=== PATIENT | male | born 1950 | race Caucasian/White ===

== ENCOUNTER → 2016-09-14 09:48 | Outpatient (CLI) | payer MEDICARE, OTHER ==
[2013-04-08 09:45] VITALS: BMI 29.3
[~2016-09-14 09:48] MED LIST: GEMFIBROZIL600 MG PO; LORTAB 7.5/5001 TA1 PO; NAPROSYN500 MG PO; NORCO 10/325 TA1 TA1 PO; PRILOSEC20 MG PO; ZEBETA5 MG PO
[2016-09-14 10:47] LABS: BASOPHILS 0.7 % (0-2); EOSINOPHILS 3.3 % (0-7); HEMATOCRIT 49.5 % (42.0-54.0); HEMOGLOBIN 16.9 g/dL (13.5-17.5); IMMATURE GRANULOCYTES 0.1 % (0-5); LYMPHOCYTES 25.6 % (15-50); MCHC 34.1 g/dL (31.0-37.0); MCV 96.7 fL (80.0-100.0); MEAN PLATELET VOLUME 11.1 fL (7.4-10.4); MONOCYTES 12.9 % (2-11); NEUTROPHILS 57.4 % (40-80); RBC 5.12 10x6/uL (4.20-6.10); RDW 12.3 % (11.5-14.5); WBC 7.3 10x3/uL (4.8-10.8)
[2016-09-14 10:48] LABS: PLATELET COUNT 182 10x3/uL (130-400)
[2016-09-14 10:54] LABS: APTT 28.9 SECONDS (22.8-39.4); INR 1.01 (0.85-1.17); PROTIME 13.1 SECONDS (11.6-15.0)
[2016-09-14 11:05] LABS: % SATURATION 38 % (15-55); IRON 154 ug/dl (35-150); TOTAL IRON BIND CAPACITY 403 ug/dl (260-445); UNSAT IRON BIND CAPACITY 249 ug/dl (150-375)
[2016-09-14 11:20] LABS: ALKALINE PHOSPHATASE 104 U/L (46-116); ALT (SGPT) 90 U/L (10-68); BILIRUBIN - DIRECT 0.27 mg/dL (0.00-0.30); BILIRUBIN - INDIRECT 0.83 mg/dL (0.00-1.00); CALC OSMOLALITY 276 mosm/kg (275-300); CALCIUM 9.5 mg/dL (8.5-10.1); CARBON DIOXIDE 30.2 mmol/L (21.0-32.0); CHLORIDE - SERUM 101 mmol/L (98-107); CHOL - HDL RATIO 3.2 ratio (2.3-4.9); CHOLESTEROL, TOTAL 285 mg/dL (0-200); FERRITIN 450 ng/mL (3-244); GAMMA GT 59 U/L (5-85); HDL CHOLESTEROL 90 mg/dL (32-96); LDL CHOLESTEROL 174 mg/dL (0-100); LDL-HDL RATIO 1.9 ratio (1.5-3.5); PROTEIN - SERUM 7.7 g/dL (6.4-8.2); SODIUM 138 mmol/L (136-145); TRIGLYCERIDE 109 mg/dL (30-200); UREA NITROGEN 9 mg/dL (7-18); eGFR NON AFRICAN AMERICAN 79 mL/min (90-120)
[2016-09-14 11:22] LABS: GLUCOSE 130 mg/dL (74-106)
[2016-09-15 08:21] LABS: FOLATE (FOLIC ACID) - SERUM 14.3 ng/mL (>3.0); HEPATITIS C ANTIBODY 0.1 (0.0-0.9)
[2016-09-15 10:20] LABS: ALPHA FETOPROTEIN -(TUMOR MRK) 13.2 ng/mL (0.0-8.3)
[2016-09-15 11:18] LABS: HAPTOGLOBIN 73 mg/dL (34-200)
== END | disposition home or self-care (01) ==
LOC: D.US 09:48
PROVIDERS: Internal Medicine Gastroenterology
DX: K76.0 Fatty (change of) liver, not elsewhere classified (principal)

== ENCOUNTER → 2016-09-29 09:31 | Outpatient (CLI) | payer MEDICARE, OTHER ==
[2013-04-08 09:45] VITALS: BMI 29.3
== END | disposition home or self-care (01) ==
LOC: D.CT 09:31
DX: R79.89 Other specified abnormal findings of blood chemistry (principal); K63.5 Polyp of colon

== ENCOUNTER 2016-11-03 06:48 | Inpatient (IN) | payer MEDICARE, OTHER ==
[2016-11-01 11:37] LABS: BASOPHILS 0.4 % (0-2); EOSINOPHILS 6.1 % (0-7); HEMATOCRIT 45.4 % (42.0-54.0); HEMOGLOBIN 15.4 g/dL (13.5-17.5); IMMATURE GRANULOCYTES 0.2 % (0-5); LYMPHOCYTES 38.6 % (15-50); MCH 32.2 pg (26.0-34.0); MCHC 33.9 g/dL (31.0-37.0); MONOCYTES 14.1 % (2-11); NEUTROPHILS 40.6 % (40-80); PLATELET COUNT 184 10x3/uL (130-400); RBC 4.78 10x6/uL (4.20-6.10); RDW 12.8 % (11.5-14.5); WBC 4.9 10x3/uL (4.8-10.8)
[2016-11-01 11:51] LABS: CALC OSMOLALITY 278 mosm/kg (275-300); CHLORIDE - SERUM 104 mmol/L (98-107); GLUCOSE 111 mg/dL (74-106); POTASSIUM - SERUM 4.7 mmol/L (3.5-5.1); SODIUM 141 mmol/L (136-145); UREA NITROGEN 5 mg/dL (7-18); eGFR NON AFRICAN AMERICAN 79 mL/min (90-120)
[~2016-11-03] VITALS: Ht 175.3 cm; Wt 91.7 kg
[2016-11-03] VITALS (11 sets, daily range): BP systolic 105–194; BP diastolic 64–94; BMI 28.7
[~2016-11-03 06:48] MED LIST changes: +BETAPACE 80 MG80 MG PO; +LIPITOR10 MG PO; +OMEPRAZOLE40 MG PO
--- NOTE | 2016-11-03 19:45 | NUR ---
RECEIVED PATIENT FROM RECOVERY. PATIENT RESTING IN BED AND HAS NO COMPLAINT OF PAIN. VITALS WNL. BED IN LOWEST POSITION AND CALL LIGHT WITHIN REACH. ENCOURAGED THE PATIENT TO CALL IF HE HAS NEEDS.
[2016-11-04] VITALS (7 sets, daily range): BP systolic 91–136; BP diastolic 47–79; Ht 175.3 cm; Wt 91.7 kg
--- NOTE | 2016-11-04 00:55 | NUR ---
PAGED DR. RESENDIZ PER PATIENT REQUEST. PATIENT IS UPSET THAT HIS HOME MEDS WERE NOT REVIEWED OR REORDERED. I ASSURED THE PATIENT THAT DR. RESENDIZ HAD REVIEWED HIS HOME MED LIST.
[2016-11-04 07:15] LABS: BASOPHILS 0.2 % (0-2); EOSINOPHILS 0.4 % (0-7); HEMATOCRIT 36.3 % (42.0-54.0); HEMOGLOBIN 11.9 g/dL (13.5-17.5); IMMATURE GRANULOCYTES 0.4 % (0-5); LYMPHOCYTES 11.9 % (15-50); MCH 31.7 pg (26.0-34.0); MCHC 32.8 g/dL (31.0-37.0); MCV 96.8 fL (80.0-100.0); MEAN PLATELET VOLUME 11.2 fL (7.4-10.4); MONOCYTES 11.2 % (2-11); NEUTROPHILS 75.9 % (40-80); PLATELET COUNT 206 10x3/uL (130-400); RBC 3.75 10x6/uL (4.20-6.10); RDW 13.1 % (11.5-14.5); WBC 13.5 10x3/uL (4.8-10.8)
[2016-11-04 07:36] LABS: ANION GAP 18.3 mmol/L (8-16); CALCIUM 7.9 mg/dL (8.5-10.1); CARBON DIOXIDE 22.3 mmol/L (21.0-32.0); CREATININE - SERUM 1.6 mg/dL (0.6-1.3)
[2016-11-04 07:39] LABS: POTASSIUM - SERUM 4.6 mmol/L (3.5-5.1)
--- NOTE | 2016-11-04 08:09 | NUR ---
PT SEEN THIS AM. NO COMPLAINTS OF PAIN OR NAUSEA AT PRESENT. MIDLINE DRESSING CLEAN DRY AND INTACT. LAP SITES X 2 NOTED. CALL LIGHT IN REACH. BOWEL SOUNDS NOTED.
--- NOTE | 2016-11-04 12:17 | NUR ---
Patient Name: EMELINA MENDEZ Admission Status: Elective Accout number: [id number] Admission Date: 11-03-2016 : 1950 Admission Diagnosis:BENIGN NEOPLASM OF SIGMOID COLON Attending: RADHA Current LOS: 1 Anticipated DC Date: 11-06-2016 Planned Disposition: Home Primary Insurance: MEDICARE A & B Discharge Planning Comments: CM MET WITH PATIENT REGARDING D/C NEEDS AND PLANS. PATIENT STATED HE LIVES ALONE BUT HIS GIRLFRIEND (TRE) WILL DRIVE HIM HOME AND WILL BE STAYING WITH HIM AT DISCHARGE. PATIENT STATED THERE ARE 15 STEPS W/RAILS TO ENTER HOME AND NO STAIRS INSIDE. PATIENT IS INDEPENDENT WITH HIS CARE AND HAS NO DME AT HOME. PATIENTS PCP IS DR. GARSIA AND PHARMACY IS [facility]. PATIENT DOES NOT WANT HOME HEALTH. CM WILL CONTINUE TO FOLLOW PATIENT WITH D/C NEEDS AND PLANS. PCP DR. SUN RENDON [facility]- [phone] TRE (GIRLFRIEND) [phone] Mailroom Courier: Brooke Salazar Is the patient Alert and Oriented? Yes 0 * How many steps to enter\exit or inside your home? 15 W/RAILS 0 * PCP DR. GARSIA 0 * Pharmacy [facility] 0 * Preadmission Environment Home Alone 0 * ADLs Independent 0 * Equipment None 0 * List name and contact numbers for known caregivers / representatives who currently or will assist patient after discharge: TRE (GIRLFRIEND) [phone] 0 * Community resources currently utilized None 0 * Additional services required to return to the preadmission environment? Yes 0 * Can the patient safely return to the preadmission environment? Yes 0 * Has this patient been hospitalized within the prior 30 days at any hospital? No 0 Grand Total: 0
--- NOTE | 2016-11-04 14:55 | NUR ---
PT HAS MINIMAL OUTPUT PER MCCARTHY. DOES NOT FEEL THE URGE TO PEE OR FEEL DISTENDED. VS 105/57 P 66 R 16 97.4 SAT 98%. BLADDER SCANNED WITH MAX AMOUNT SHOWN [address] RESENDIZ PAGED.
--- NOTE | 2016-11-04 15:21 | NUR ---
DR RESENDIZ RETUREND CALL. 500CC BOLUS OF NS RUNNING.
--- NOTE | 2016-11-04 16:43 | NUR ---
DR RESENDIZ CALLED REGARDING LOW OUTPUT OF 100CC URINE. 2ND NS BOLUS OF 500CC GIVEN. IN TALKING WITH PATIENT, HE STATES THAT WHILE HE WAS DOING THE BOWEL PREP, HE ONLY DRANK 1 BOTTLE OF GATORADE AND LOST ABOUT 6 PUNDS. WILL RELAY THIS INFORMATION TO DOCTOR ALONG WITH LAB RESULTS.
[2016-11-04 17:10] LABS: BASOPHILS 0.2 % (0-2); EOSINOPHILS 1.7 % (0-7); HEMATOCRIT 32.2 % (42.0-54.0); HEMOGLOBIN 10.5 g/dL (13.5-17.5); IMMATURE GRANULOCYTES 0.2 % (0-5); LYMPHOCYTES 18.4 % (15-50); MCH 32.1 pg (26.0-34.0); MCHC 32.6 g/dL (31.0-37.0); MCV 98.5 fL (80.0-100.0); MEAN PLATELET VOLUME 10.8 fL (7.4-10.4); MONOCYTES 13.9 % (2-11); NEUTROPHILS 65.6 % (40-80); RBC 3.27 10x6/uL (4.20-6.10); RDW 13.2 % (11.5-14.5); WBC 12.1 10x3/uL (4.8-10.8)
[2016-11-04 17:15] LABS: PLATELET COUNT 157 10x3/uL (130-400)
[2016-11-04 17:21] LABS: ANION GAP 16.1 mmol/L (8-16); CALCIUM 7.5 mg/dL (8.5-10.1); CARBON DIOXIDE 25.7 mmol/L (21.0-32.0); CREATININE - SERUM 2.4 mg/dL (0.6-1.3); POTASSIUM - SERUM 4.8 mmol/L (3.5-5.1)
--- NOTE | 2016-11-04 19:19 | NUR ---
PT SECOND BOLUS FINISHED AND URINE OUTPUT NOW 100 CC. LAB DONE AND CALLED TO DR RESENDIZ WITH NO NEW ORDERS RECIEVED. WILL CONTINUE TO MONITOR URINE OUTPUT
--- NOTE | 2016-11-04 21:30 | NUR ---
AMBULATED WITH PATIENT 5 LAPS AROUND NURSE STATION (1000 FEET). PATIENT AMBULATED WITH MINIMAL ASSIST, ONLY HOLDING MY HAND, I CARRIED MCCARTHY CATHETER AND PUSHED THE IV POLE. PATIENT DID NOT APPEAR TO BE IN ANY DISTRESS WHILE HE WAS WALKING. RESPIRATIONS UNLABORED ON ROOM AIR. PATIENT BACK TO BED. CALL LIGTH IN REACH. PATIENT DENIES NEEDS. PATIENT STATED HIS PAIN IS CONTROLED AND HE IS SELDOMLY USING THE SHIP MANAGER. SCDS TO BILATERAL LEGS. BED IN LOWEST POSITON, BED RAILS UP X'S 2.
[2016-11-05] VITALS: BP 110/62
--- NOTE | 2016-11-05 03:55 | NUR ---
PATIENT STATED HE IS HURTING REALLY BAD, PATIENT ASKED IF HE COULD SIT ON THE TOILET. ASSISTED PATIENT WITH IV POLE AND MCCARTHY HE WALKED TO THE BATHROOM. PATIENT CALLED ME IN THE ROOM, AND HE STATED HE FEELS LIKE HE NEEDS TO URINATE BUT IS UNABLE TO WITH THE CATHETER. SHOWED PATIENT THE URINE IN THE MCCARTHY TUBING AND COLLECTION BAG, PATIENT STATED "I KNOW BUT THAT IS NOT ALL OF IT. IF YOU TAKE THIS CATHETER OUT I COULD PROBABLY URINATE 2 GALLONS." .
[2016-11-05 04:00] VITALS: BP 139/78
--- NOTE | 2016-11-05 04:00 | NUR ---
BLADDER SCANNER SHOWS 0ML, SHOWED IT TO PATIENT. EXPLAINED TO PATIENT THAT HE IS PROBABLY FEELING THE PRESSURE FROM HIS ABDOMEN AND HE PROBABLY NEEDS TO WALK. PATIENT AGREED. PATIENT AMBULATED 2 LAPS AROUND NURSE STATION. PATIENT BACK IN BED. HOB 35 DEGREES. BED IN LOWEST POSITION, CALL LIGHT IN REACH. BED RAILS UP X'S 2.
[2016-11-05 07:09] LABS: BASOPHILS 0.2 % (0-2); EOSINOPHILS 1.1 % (0-7); HEMATOCRIT 30.1 % (42.0-54.0); HEMOGLOBIN 9.9 g/dL (13.5-17.5); IMMATURE GRANULOCYTES 0.2 % (0-5); LYMPHOCYTES 13.3 % (15-50); MCH 31.7 pg (26.0-34.0); MCHC 32.9 g/dL (31.0-37.0); MEAN PLATELET VOLUME 10.9 fL (7.4-10.4); MONOCYTES 10.1 % (2-11); NEUTROPHILS 75.1 % (40-80); PLATELET COUNT 143 10x3/uL (130-400); RBC 3.12 10x6/uL (4.20-6.10); RDW 13.1 % (11.5-14.5)
[2016-11-05 07:10] LABS: MCV 96.5 fL (80.0-100.0); WBC 6.2 10x3/uL (4.8-10.8)
[2016-11-05 07:25] LABS: ANION GAP 13.1 mmol/L (8-16); CALCIUM 7.7 mg/dL (8.5-10.1); CARBON DIOXIDE 25.2 mmol/L (21.0-32.0); POTASSIUM - SERUM 4.3 mmol/L (3.5-5.1)
[2016-11-05 07:26] LABS: CREATININE - SERUM 1.6 mg/dL (0.6-1.3)
--- NOTE | 2016-11-05 08:15 | NUR ---
PT RESTING IN BED WITH EYES OPEN CALL LIGHT IN REACH NO PROBLEMS WILL MONITER
[2016-11-05 08:42] VITALS: BP 96/52
--- NOTE | 2016-11-05 12:15 | NUR ---
AWAKE AND ALERT AT THIS TIME. RESPIRATIONS EVEN AND NON LABORED. CALL LIGHT IN REACH, WILL CONTINUE WITH PLAN OF CARE.
[2016-11-05 12:19] VITALS: BP 114/55
--- NOTE | 2016-11-05 14:30 | NUR ---
DCD MCCARTHY CATH PER ORDER TIP PAUL IN TACT TOLERATED WELL
--- NOTE | 2016-11-05 15:36 | NUR ---
PT RESTING IN BED WITH EYES OPEN CALL LIGHT IN REACH NO PROBLEMS WILL MONITER
[2016-11-05 16:26] VITALS: BP 109/59
--- NOTE | 2016-11-05 17:34 | NUR ---
PT RESTING IN BED WITH EYES OPEN CALL LIGHT IN REACH WILL MONITER
--- NOTE | 2016-11-05 19:30 | NUR ---
PATIENT RESTING IN BED WITH EYES CLOSED. BED IN LOWEST POSITION AND CALL LIGHT WITHIN REACH.
[2016-11-05 20:00] VITALS: BP 116/61
[2016-11-06] VITALS (8 sets, daily range): BP systolic 87–158; BP diastolic 54–75
--- NOTE | 2016-11-06 02:44 | NUR ---
SPOKE WITH DR. NAJERA IN REGARDS TO THE PATIENT'S ELEVATED HR. ORDERED A ONE TIME 500ML BOLUS
--- NOTE | 2016-11-06 03:48 | NUR ---
SPOKE WITH DR. NAJERA WHO SAID TO ADMINISTER PT'S LOPRESSOR FOR ELEVATED HR 162
--- NOTE | 2016-11-06 05:04 | NUR ---
PAGED DR. RESENDIZ ABOUT PATIENT'S ELEVATED HR
--- NOTE | 2016-11-06 07:00 | NUR ---
PT REC'D FROM TORI BRADLEY. RESTING IN BED WITH EYES CLOSED. NO SIGNS OF DISTRESS. RESP EVEN AND UNLABORED. EASILY AROUSED. AAOX4. RATING CURRENT PAIN IN ABD 09/24. WILL REASSESS. CURRENT HEART RATE 159, BP 123/85, 95% ON RA. NO COMPLAINTS OF CHEST PAIN. ABD ROUND, BOWEL SOUNDS ACTIVE X4 QUADRANTS, FIRM TO PALPATION WITH PAIN AND GUARDING WHEN PALPATING LLQ. MIDLINE ABD INCISION APPROXIMATE WITH 6 NEO FREE OF REDNESS AND SWELLING. LAP SITE TO RUQ WITH 1 STAPLE APPROXIMATE AND FREE OF REDNESS AND SWELLING. WILL PAGE DR. RESENDIZ REGARDING HR. BED LOW, CALL LIGHT IN REACH, DENIES NEEDS. CPOC.
--- NOTE | 2016-11-06 07:45 | NUR ---
DR. MARTÍN CARRIZALES.
--- NOTE | 2016-11-06 07:50 | NUR ---
DR. RESENDIZ ON PHONE. UPDATE PROVIDED AND NEW ORDERS REC'D.
--- NOTE | 2016-11-06 08:15 | NUR ---
LUIS FELIPE, WAITER/WAITRESS INFORMAL TECH, ON PHONE. STATES, "HIS MEDICATION MUST BE WORKING. HE'S DOWN TO 95 SINUS RHYTHM." WILL CONTINUE TO MONITOR.
[2016-11-06 08:48] LABS: CKMB 0.7 U/L (0.0-3.6); CREATINE KINASE 202 UL (21-232); PRO BNP 3014 pg/mL (0-125); TROPONIN-I < 0.017 ng/mL (0.000-0.060)
--- NOTE | 2016-11-06 10:10 | NUR ---
MORNING MEDS PASSED AT THIS TIME. DR. RESENDIZ AT BEDSIDE DISCUSSING POC. NEOSPORIN APPLIED TO INCISION SITES. CURRENT HR 159 ON CONT SPO2 MONITOR. PRN PAIN MEDICATION AND ANTIEMETIC ADMINISTERED. WILL REASSESS PAIN. BED LOW, CALL LIGHT IN REACH, WILL CONTINUE TO MONITOR.
--- NOTE | 2016-11-06 10:28 | NUR ---
PT IN BED, RESP EVEN AND UNLABORED. PT DENIES ANY NEEDS AT THIS TIME. CALL LIGHT IN REACH, NAD NOTED.
--- NOTE | 2016-11-06 12:48 | NUR ---
RESTING IN BED WATCHING TV. NO SIGNS OF DISTRESS. RESP EVEN AND UNLABORED. CURRENT HR 85 SINUS RHYTHM PER TORI NOWAK, AT BUSINESS INTEGRATION ANALYST.
--- NOTE | 2016-11-06 15:00 | NUR ---
PRN PAIN MEDICATION ADMINISTERED DUE TO PT COMPLAINTS OF 9/10 ABD PAIN. WILL REASSESS. ANTIEMETIC ALSO ADMINISTERED DUE PAIN MEDICATION MAKING PT FEEL NAUSEOUS. REPOSITIONED UP IN BED. O2 REAPPLIED. BED LOW, CALL LIGHT IN REACH, DENIES NEEDS. CPOC.
--- NOTE | 2016-11-06 15:51 | NUR ---
PT HAD TAKEN O2 TUBING OFF. O2 ALARM SOUNDING READING 82% ON ROOM AIR. SHOWED PT HIS O2 SAT AND EXPLAINED TO HIM THIS IS WHY HE NEEDS TO KEEP HIS OXYGEN ON. NC REAPPLIED AND O2 AT 3L. SPO2 BACK UP TO 93%. CURRENT HR OF 83 ON SPO2 MONITOR.
--- NOTE | 2016-11-06 18:50 | NUR ---
DR. RESENDIZ PAGED REGARDING SOB AND MCCAULEY ON EXCERTION. NEW ORDERS REC'D.
--- NOTE | 2016-11-06 20:24 | NUR ---
SPOKE WITH DR. BYRD WHO SAID TO ADMINISTER PATIENT'S ZEBETA AND BETAPACE. I INFORMED DR. BYRD THAT THE PATIENT'S HR ON TELE IS 156 SVT AND HIS BNP CAME BACK 3014. DR. BYRD HAD NO FURTHER ORDERS.
--- NOTE | 2016-11-06 20:24 | NUR ---
PATIENT'S HR 156 SVT
--- NOTE | 2016-11-06 23:57 | NUR ---
PAGED DR. RESENDIZ
[2016-11-07] VITALS (38 sets, daily range): BP systolic 80–147; BP diastolic 44–94
--- NOTE | 2016-11-07 00:15 | NUR ---
SPOKE WITH EMA, DOWN FILLER IN REGARDS TO PT. SHE ADVISED ME TO CONTACT DR. RESENDIZ AND SHE AND I BOTH SPOKE WITH DR. RESENDIZ. INFORMED DR. RESENDIZ ABOUT PT'S INCREASINGLY DISTENDED ABDOMEN, ELEVATED HR, RHONCHI AND CRACKLES IN HIS LUNGS, AND DECREASED URINE OUTPUT. DR. RESENDIZ TRANS THE PT TO CVICU AND ORDERED ADDITIONAL TESTS.
[2016-11-07 01:04] LABS: BASOPHILS 0.3 % (0-2); EOSINOPHILS 0.4 % (0-7); HEMOGLOBIN 10.8 g/dL (13.5-17.5); IMMATURE GRANULOCYTES 0.5 % (0-5); LYMPHOCYTES 17.7 % (15-50); MCHC 33.8 g/dL (31.0-37.0); MCV 94.7 fL (80.0-100.0); MONOCYTES 17.4 % (2-11); NEUTROPHILS 63.7 % (40-80); RBC 3.38 10x6/uL (4.20-6.10); RDW 12.9 % (11.5-14.5)
[2016-11-07 01:05] LABS: PLATELET COUNT 219 10x3/uL (130-400); WBC 7.9 10x3/uL (4.8-10.8)
[2016-11-07 01:19] LABS: ALBUMIN 2.3 g/dL (3.4-5.0); ANION GAP 16.7 mmol/L (8-16); BILIRUBIN - TOTAL 0.8 mg/dL (0.2-1.3); CALCIUM 8.3 mg/dL (8.5-10.1); CARBON DIOXIDE 24.2 mmol/L (21.0-32.0); CREATININE - SERUM 1.6 mg/dL (0.6-1.3); POTASSIUM - SERUM 3.9 mmol/L (3.5-5.1); PROTEIN - SERUM 6.2 g/dL (6.4-8.2)
--- NOTE | 2016-11-07 01:40 | NUR ---
DR RESENDIZ CALLED IN FOR UPDATE ON PT. DISCUSSED LABS AND VITAL SIGN AND PT CONDITION. NO NEW ORDERS AT THIS TIME.
--- NOTE | 2016-11-07 01:45 | NUR ---
PT RECVD VIA W/C TO ROOM CV03. AMBULATED TO ICU BED AND PLACED ON MONITORS. AOX4. RESP SHALLOW, UNLABORED. SPO2 98% ON O2 AT 4.5 LPM NC. HR 87, CONTROLLED A FIB. PULSES PALP, LUNG SOUNDS WITH SCANT EXP WHEEZES. OCC PROD COUGH, REPORTS WHITISH PINK SPUTUM. ABD DISTENDED WITH HYPO BS. PASSING FLATUS AND REPORTS RECENT BM. BLADDER NON PALP. VOIDING TO URINAL. PAIN LEVEL ACCEPTABLE POST DILAUDID. HOB UP. ORIENTED TO CALL LIGHT. BED ALARM ON. CONT CURRENT POC.
--- NOTE | 2016-11-07 03:45 | NUR ---
REASSESSMENT COMPLETED. SEE FLOWSHEET FOR ALL FINDINGS. RESTING WITH NO DISTRESS. RESP EVEN AND UNLABORED. SCANT EXP WHEEZES PER AUSC. SPO2 97% ON O2 AT 4 LPM NC. CAFIB ON THE MONITOR. HR 78. SYS 105 AFEBRILE. ABD DISTENDED. BS HYPO. INCISIONAL DRESSING CDI. PASSING FLATUS. BLADDER NON PALP. DENIES URGE. HOB UP. C/L IN REACH. CONT CURRENT POC.
--- NOTE | 2016-11-07 05:25 | NUR ---
RESTING WITH NO DISTRESS. CAFIB AT 78. SYS 95 NO NEEDS VOICED. C/L IN REACH. CONT CURRENT POC.
--- NOTE | 2016-11-07 09:32 | NUR ---
PT UP TO RESTROOM. HAD SMALL LIQUID BM IN TOILET AND VOIDED WITHOUT DIFFICULTY. ASSISTED BACK TO BED. ABDOMEN VERY DISTENDED AND PT REPORTS "I FEEL LIKE I'M FULL UP TO MY TONSILS". DENIES NAUSEA, BUT IS BURPING FREQUENTLY. VSS. O2 SAT 96% ON 3LNC. DR. [place]IZ [place].
--- NOTE | 2016-11-07 10:02 | NUR ---
PT TAKEN TO CT BY BED.
--- NOTE | 2016-11-07 10:30 | NUR ---
PT BACK FROM CT BY BED. VOMITED DARK GREEN EMESIS. APPROX 300CC. PT CLEANED AND LINENS CHANGED. 16F NGT PLACED TO RIGHT NARE. IMMEDIATELY EMPTIED 600CC OF DARK GREEN FLUID IN SUCTION CANNISTER. PT REPORTS THAT HE FEELS MUCH BETTER. ABDOMEN IS SOFTER, BUT STILL DISTENDED. DR. RESENDIZ NOTIFIED AND ORDERS RECEIVED.
--- NOTE | 2016-11-07 11:13 | NUR ---
CALLED DR. RESENDIZ AND UPDATED ON PT'S STATUS. ORDERS RECEIVED.
--- NOTE | 2016-11-07 11:45 | NUR ---
AMIODARONE BOLUS GIVEN. AMIODARONE GTT STARTED AT 1MG/HR. HR 161. A-FIB. BP STABLE AT 120/75. NO S/S OF DISTRESS NOTED.
--- NOTE | 2016-11-07 12:25 | NUR ---
PT CONVERTED INTO SINUS RHYTHM RATE 84. BP STABLE.
--- NOTE | 2016-11-07 13:41 | NUR ---
Nutrition follow-up: Pt has been made NPO at this time due to a possible anastomotic leaks NGT in place Abdomen distended; + BS, +BM Will need nutrition support started within 48-72 hours if diet unable to begin. RDN following.
--- NOTE | 2016-11-07 14:45 | NUR ---
PT'S SON CALLED. GIVEN PASSWORD. UPDATED HIM ON PT'S STATUS.
--- NOTE | 2016-11-07 15:54 | NUR ---
PT REPOSITIONED IN BED FOR COMFORT. CALL LIGHT WITHIN REACH.
--- NOTE | 2016-11-07 16:42 | NUR ---
DR BYRD CALLED AND UPDATED ON PT'S STATUS. NOTIFIED OF PT'S CONVERSION TO SINUS RHYTHM. CONCERN THAT PT'S HR WILL GET TOO SLOW WITH IV LOPRESSOR AND BP ALSO. ORDERS RECEIVED TO D/C SCHEDULED IV LOPRESSOR.
--- NOTE | 2016-11-07 19:30 | NUR ---
REC'D PT RESTING IN BED EYES CLOSED, O2 @ 3LITERS VIA NC, AWAKENS TO VERBAL STIMULI, ORIENTED X 4, RIGHT NARE NGT TO LIWS WITH GREEN DRAINAGE, PLACEMENT VERIFIED VIA SM AIR BOLUS AUSCULTATED OVER EPIGASTRIM, ABD DISTENDED, BS HYPOACTIVE, PT DOES REPORT TENDERNESS TO LOWER QUADRANTS, LAP INCISION NOTED WITH NEO TO RLQ, RIGHT FOREARM PIV WITH NS @ 75CC/HR AND NEXTERONE @ 16.7CC/HR, CM-SR WITH PAC'S, PT DENIES PAIN OR NEEDS, BILAT SCD'S APPLIED AND MACHINE TURNED ON, PP WEAK TO PALPATION, SR UP X 2, CALL LIGHT IN REACH.
--- NOTE | 2016-11-07 21:00 | NUR ---
TRIPLE ANTIBIOTIC OINTMENT APPLIED TO RIGHT LOWER AND MIDLINE ABDOMEN INCISION SITES, NEO WELL APPROXIMATED, NO REDNESS FOR DRAINAGE.
--- NOTE | 2016-11-07 21:12 | NUR ---
PT COMPLAINS OF ABDOMINAL PAIN , RATING " 4" ON 0-10 PAIN SCALE, 1MG DILAUDID GIVEN SLOW IVP IN DIVIDED DOSES.
--- NOTE | 2016-11-07 21:45 | NUR ---
PT RESTING EYES CLOSED, RESP EVEN AND UNLABORED, BP DECREASED RETURNS TO BASELINE AFTER PT INTERACTION, WILL MONITOR CLOSELY FOR CHANGES.
--- NOTE | 2016-11-07 23:10 | NUR ---
REASSESSMENT COMPLETE, PT REPOSITIONED UP AND ONTO RIGHT SIDE SUPPORTED WITH PILLOWS, ICE CHIPS PROVIDED, PT DENIES FURTHER NEEDS.
[2016-11-08] VITALS (24 sets, daily range): BP systolic 84–137; BP diastolic 51–82
--- NOTE | 2016-11-08 01:00 | NUR ---
NO CHANGES IN STATUS AT THIS TIME
--- NOTE | 2016-11-08 02:20 | NUR ---
PT AWAKE WATCHING TV WHEN ASKED ABOUT PAIN, STATES " I AM HURTING BAD", ABDOMEN REMAINS DISTENDED AND SEMISOFT, 1MG DILAUDID GIVEN SLOW IV PUSH FOR PAIN RATING "6-8" ON 0-10 PAIN SCALE, PT REPOSITIONED ONTO BACK AND UP IN BED FOR COMFORT, WILL MONITOR FOR CHANGES.
--- NOTE | 2016-11-08 03:15 | NUR ---
DR. HARMON PAGED REGARDING AF @ 158
--- NOTE | 2016-11-08 03:25 | NUR ---
SPOKE WITH DR. HARMON, NEW ORDERS REC'D TO REBOLUS AND TURN GTT BACK TO 1MG/MIN
--- NOTE | 2016-11-08 03:30 | NUR ---
AMIODARONE BOLUS OF 150MG BEGUN AT THIS TIME, PT RESTING EYES CLOSED, AWAKENS BRIEFLY WHILE AT BS WHEN ASKED IF PAIN HAD SUBSIDED, STATES "PRETTY MUCH", WILL MONITOR CLOSELY FOR CHANGES.
--- NOTE | 2016-11-08 04:00 | NUR ---
RATE HAS SLOWED TO 86 WITH FREQUENT PAC'S, BP 113/59, WILL CONT TO MONITOR FOR CHANGES.
--- NOTE | 2016-11-08 05:00 | NUR ---
LAB AT FOR AM LAB DRAW
[2016-11-08 05:34] LABS: BASOPHILS 0.2 % (0-2); EOSINOPHILS 0.2 % (0-7); HEMATOCRIT 32.4 % (42.0-54.0); HEMOGLOBIN 11.1 g/dL (13.5-17.5); IMMATURE GRANULOCYTES 0.8 % (0-5); LYMPHOCYTES 13.2 % (15-50); MCH 31.7 pg (26.0-34.0); MCHC 34.3 g/dL (31.0-37.0); MONOCYTES 17.2 % (2-11); NEUTROPHILS 68.4 % (40-80); RDW 13.2 % (11.5-14.5); WBC 8.5 10x3/uL (4.8-10.8)
[2016-11-08 05:40] LABS: MCV 92.6 fL (80.0-100.0); PLATELET COUNT 275 10x3/uL (130-400)
[2016-11-08 05:52] LABS: ANION GAP 14.9 mmol/L (8-16); CALCIUM 7.9 mg/dL (8.5-10.1); CARBON DIOXIDE 23.1 mmol/L (21.0-32.0); MAGNESIUM - SERUM 1.3 mg/dL (1.8-2.4); PHOSPHOROUS 3.3 mg/dL (2.5-4.9)
[2016-11-08 05:54] LABS: CREATININE - SERUM 2.7 mg/dL (0.6-1.3)
--- NOTE | 2016-11-08 06:40 | NUR ---
PT WANTING NGT OUT EXPALINED TO PT THE NGT MUST REMAIN IN OR HIS SYMPTOMS WOULD WORSEN THE DAY BEFORE, PT STATES " I AM DEHYDRATED", EXPLAINED TO PT THAT HE HAD IVF'S INFUSING, ICE CHIPS AND ORAL SWABS PROVIDED, PT DISLIKE THE ORAL SWABS, LEMON GLYVERIN SWABS PROVIDED, OFFERED PAIN MEDICATION AT THIS TIME, REFUSES, STATES " I JUST WANT SOME RELIEF".
--- NOTE | 2016-11-08 06:50 | NUR ---
PT USING LEMON GLYCERIN SWABS WITH ICE CHIPS, STATES MOUTH DRYNESS IS " A LITTLE BETTER", PT REPORTS INTERMITTENT NAUSEA, 4MG ZOFRAN GIVEN SLOW IVP, WILL CONT TO MONITOR FOR CHANGES.
--- NOTE | 2016-11-08 07:45 | NUR ---
16 FR MCCARTHY CATH PLACED PER MD ORDERS. PT DID NOT VOID THROUGH THE NIGHT. URINARY RETENTION NOTED. 75CC OF MYRNA URINE NOTED WHEN MCCARTHY PLACED.
--- NOTE | 2016-11-08 08:26 | NUR ---
RESP THERAPY AT BEDSIDE FOR ABG. PT INCREASED LETHARGY. INC ABD DISTENTION.
--- NOTE | 2016-11-08 09:05 | NUR ---
DR. RESENDIZ AT BEDSIDE. UPDATED ON PT'S STATUS. DR OSORIO CALLED PT'S SON PRITESH AND UPDATED HIM ON PT'S STATUS AND PLAN OF CARE.
--- NOTE | 2016-11-08 10:24 | NUR ---
20G PIV STARTED IN RIGHT FA. NS WITH CRUSHER FOREMAN SET UP TO THIS IV WITH MAG INFUSION.
--- NOTE | 2016-11-08 10:39 | NUR ---
PT GIVEN .4MG DILAUDID BOLUS VIA CASING CREW PUMP. PRIOR TO TURNING PT AND GIVING HIM HIS CHLORAHEXADINE BATH PRIOR TO SURGERY.
--- NOTE | 2016-11-08 12:20 | NUR ---
PT RESTING COMFORTABLY AT THIS TIME. VSS AT THIS TIME.
--- NOTE | 2016-11-08 15:00 | NUR ---
PT TAKEN TO OR BY OR TEAM. CALLED AND NOTIFIED PT'S SON.
--- NOTE | 2016-11-08 16:15 | NUR ---
REPORT CALLED TO TORI GILL IN ICU. PT GOING TO ROOM 2312 WHEN FINISHED WITH SURGERY.
--- NOTE | 2016-11-08 18:47 | NUR ---
NOTIFIED DR AYALA REGARDING RESPIRATORY STATUS. DR AYALA ORDERED ABG'S STAT. DR. AYALA RECEIVED RESULTS FROM ABG'S. HE ORDERED 2 AMPS OF SODIUM BICARB. THIS WAS GIVEN BY VIJAYA GOMEZ RN.
--- NOTE | 2016-11-08 19:30 | NUR ---
PT ARRIVED WITH RECOVERY TEAM WITH THEIR MONITORS HOOKED UP FOR TRANSPORT. PT MOVED INTO OUR ICU BED AND PLACED ON ICU MONITORS. ASSESSMENT COMPLETED. PT VSS. PT ON SIMPLE FACE MASK ON 10L OF O2. PT ARRIVED WITH SINUS RHYTHM WITH PALP PULSES IN ALL EXTRMITIES. PT HAS A MIDLINE INCISION ON ABDOMEN, TORIN DRAIN ON THE LT LOWER ABDOMEN, AND AN OSTOMY ON THE LOWER RT SIDE OF HIS ABDOMEN. PT POSITIONED FOR COMFORT WILL CONTINUE TO MONITOR.
--- NOTE | 2016-11-08 19:30 | NUR ---
PT ARRIVED TO UNIT WITH RECOVERY TEAM. PT ARRIVED ON 10 L SIMPLE MASK WITH SATS MID 90'S. PT HAS A MIDLINE INCISION, TORIN DRAIN IN THE LT LOWER QD, AND A OSTOMY IN THE LLQ. PT HAS HYPO X4 BOWEL SOUNDS. CLEAR LUNG SOUNDS IN THE UPER LOBES AND DIMINISHED SOUNDS IN THE LOWER LOBES. NORMAL SINUS. PT POSITIONED FOR COMFORT WILL CONTINUE TO MONITOR.
--- NOTE | 2016-11-08 19:45 | NUR ---
TORIN DRAIN EMPTIED IN ICU AT HAND OFF WITH 50CC OUT.
--- NOTE | 2016-11-08 19:52 | NUR ---
DR AYALA ORDERED ABG'S TO BE REPEATED IN 30 MINUTES AFTER FIRST SET OF ABG'S. RT NOTIFIED. AMI FROM RESPIRATORY ADDIS GASES AND IS AWARE OF THE REPEAT ABG'S.
--- NOTE | 2016-11-08 19:54 | NUR ---
DR AYALA ORDERED THAT PATIENT STAY ON SIMPLE MASK AT 10L OF O2 AND BE DISCHARGED FROM RECOVERY TO ICU.
--- NOTE | 2016-11-08 21:00 | NUR ---
PT DAUGHTER AND RUSTAM IN LAW AT BEDSIDE UPDATE GIVEN. PT POSITIONED FOR COMFORT WILL CONTINUE TO MONITOR.
--- NOTE | 2016-11-08 23:00 | NUR ---
ASSESSMENT COMPLETED. NO ACUTE CHANGES. PT POSITIONED FOR COMFORT WILL CONTINUE TO MONITOR.
[2016-11-09] VITALS (24 sets, daily range): BP systolic 106–140; BP diastolic 61–93
--- NOTE | 2016-11-09 01:00 | NUR ---
PT ASLEEP IN BED PT DENIES ANY NEEDS. VSS. WILL CONTINUE TO MOMITOR.
--- NOTE | 2016-11-09 03:00 | NUR ---
REASSESSMENT COMPLETED. NO ACUTE CHANGES TO THE PT. WILL CONTINUE TO MONITOR PT.
[2016-11-09 04:31] LABS: BASOPHILS 0.2 % (0-2); EOSINOPHILS 0.1 % (0-7); HEMATOCRIT 31.4 % (42.0-54.0); HEMOGLOBIN 10.7 g/dL (13.5-17.5); IMMATURE GRANULOCYTES 1.8 % (0-5); LYMPHOCYTES 7.6 % (15-50); MCH 31.4 pg (26.0-34.0); MCHC 34.1 g/dL (31.0-37.0); MCV 92.1 fL (80.0-100.0); MEAN PLATELET VOLUME 10.9 fL (7.4-10.4); MONOCYTES 10.3 % (2-11); PLATELET COUNT 282 10x3/uL (130-400); RBC 3.41 10x6/uL (4.20-6.10); RDW 13.5 % (11.5-14.5); WBC 9.8 10x3/uL (4.8-10.8)
[2016-11-09 04:50] LABS: ANION GAP 17.4 mmol/L (8-16); CALCIUM 7.5 mg/dL (8.5-10.1); CARBON DIOXIDE 20.7 mmol/L (21.0-32.0); CREATININE - SERUM 3.2 mg/dL (0.6-1.3); PHOSPHOROUS 3.1 mg/dL (2.5-4.9); POTASSIUM - SERUM 4.1 mmol/L (3.5-5.1)
--- NOTE | 2016-11-09 05:10 | NUR ---
PT RESTING IN BED SWABBED HIS MOUTH DO TO THE O2 DRYING IT OUT. PT SEEMS TO BE SORE WITH A LITTLE PAIN FROM SURGERY TREATED WITH JET PILOT. WILL CONTIUE TO MONITOR.
--- NOTE | 2016-11-09 08:25 | NUR ---
SHIFT ASSESSMENT COMPLETED. PATIENT DENIES ANY NEEDS. EXPLAINED TO PATIENT HOW TO USE THE ADOLESCENT SPECIALIST BUTTON FOR HIS PAIN. CALL LIGHT WITHIN REACH.
--- NOTE | 2016-11-09 10:25 | NUR ---
NUTRITION MONITORING & EVAL CHART REVIEWED, PT NOW IN ICU. NPO SP SURGERY. WILL MONITOR PT PROGRESS. RD FOLLOWING
--- NOTE | 2016-11-09 11:22 | NUR ---
PHYSICAL THERAPY IN AND ASSISTED PATIENT UP INTO [facility]. PATIENT HR INCREASED WITH THE EXERTION TO 150'S WILL CONTINUE TO MONITOR HR. BP 111/83 AND PATIENT DENIES ANY DIZZINESS.
--- NOTE | 2016-11-09 16:31 | NUR ---
18F NGT PLACED VIA LEFT NARE. PLACEMENT CHECKED WITH AIR BOLUS WITH GURGLING AUSC OVER MID EPIGASTRIC REGION.
--- NOTE | 2016-11-09 19:15 | NUR ---
REPORT RECIEVED. ASSESSMENT COMPLETED. PT ALERT AND ORIENTATED. PT ABDOMEN IS DISTENDED WITH DRESSING OVER INCISION. DRESSING HAS A MINIMAL DRAINAGE ON THE DRESSING. TORIN DRAIN ON THE LT LOWER ABDOMEN IS COMPRESSED. PT IS USING THE DEMONSTRATOR ELECTRIC GAS APPLIANCES PUMP TO RELIEVE THE PAIN SEE DEMONSTRATOR ELECTRIC GAS APPLIANCES FLOW SHEET FOR DOSAGE. PT IS ON ICU TELEMETRY WITH A RHYTHM OF NORMAL SINUS. PULSES ARE PALP IN ALL EXTREMITIES. LUNG SOUNDS HAVE EXPIRATORY WHEEZES IN THE UPPER LOBES AND DIMINISHED SOUNDS IN THE BASES. PT IS POSITONED FOR COMFORT. WILL CONTINUE TO MONITOR.
--- NOTE | 2016-11-09 21:00 | NUR ---
NO VISITORS AT THIS TIME. PT POSITIONED FOR COMFORT WILL CONTINUE TO MONITOR.
--- NOTE | 2016-11-09 22:24 | NUR ---
PT SON CALLED UPDATE GIVEN.
--- NOTE | 2016-11-09 23:00 | NUR ---
REASSESSMENT COMPLETED. NO ACUTE CHANGES. PT POSITIONED FOR COMFORT WILL CONTINUE TO MONITOR.
[2016-11-10] VITALS (22 sets, daily range): BP systolic 123–189; BP diastolic 77–108
--- NOTE | 2016-11-10 01:10 | NUR ---
PT POSITIONED FOR COMFORT WILL CONTINUE TO MONITOR.
--- NOTE | 2016-11-10 03:00 | NUR ---
REASSESSMENT COMPLETE. PT SEEMED TO BE A LITTLE CONFUSED. HE SEEMED TO THINK HE COULD SEE THE WAVES FROM THE REMOTE WHEN HE PUSHED THE REMOTE BUTTON. THIS COULD BE A SIDE EFFECT FROM THE PAIN MEDS. NO OTHER ACUTE CHANGES WILL CONTINUE TO MONITOR.
[2016-11-10 04:07] LABS: BASOPHILS 0.2 % (0-2); EOSINOPHILS 0 % (0-7); HEMATOCRIT 26.9 % (42.0-54.0); HEMOGLOBIN 9.6 g/dL (13.5-17.5); IMMATURE GRANULOCYTES 5.9 % (0-5); LYMPHOCYTES 5.4 % (15-50); MCH 32.1 pg (26.0-34.0); MCHC 35.7 g/dL (31.0-37.0); MEAN PLATELET VOLUME 10.1 fL (7.4-10.4); MONOCYTES 7.6 % (2-11); NEUTROPHILS 80.9 % (40-80); PLATELET COUNT 326 10x3/uL (130-400); RBC 2.99 10x6/uL (4.20-6.10); RDW 13.7 % (11.5-14.5)
[2016-11-10 04:08] LABS: WBC 16.8 10x3/uL (4.8-10.8)
[2016-11-10 04:44] LABS: ANION GAP 14.8 mmol/L (8-16); CALCIUM 7.9 mg/dL (8.5-10.1); CARBON DIOXIDE 23.3 mmol/L (21.0-32.0); CREATININE - SERUM 3.1 mg/dL (0.6-1.3); MAGNESIUM - SERUM 2.3 mg/dL (1.8-2.4); PHOSPHOROUS 2.6 mg/dL (2.5-4.9)
[2016-11-10 04:45] LABS: POTASSIUM - SERUM 3.1 mmol/L (3.5-5.1)
--- NOTE | 2016-11-10 05:03 | NUR ---
PT ASLEEP IN BED APPEARS TO DENY ANY NEEDS. WILL CONTINUE TO MONITOR PT
--- NOTE | 2016-11-10 07:58 | NUR ---
PATIENT PULLED COLOSTOMY BAG OFF OF STOMA WITH FECES SPILLING OVER ABDOMEN, ARM, AND BED. CLEANED AND REPLACED COLOSTOMY BAG, INCISION DRESSING, TORIN DRESSING, BATH, AND LINEN CHANGE COMPLETED. ENCOURAGED PATIENT TO CALL NURSE IF SOMETHING WAS BOTHERING HIM INSTEAD OF PULLING ON EQUIPMENT. DR. RESENDIZ HERE IN TO SEE PATIENT. PATIENT IS ALERT AND ORIENTED.
--- NOTE | 2016-11-10 10:44 | NUR ---
PHYSICAL THERAPY IN ROOM WITH PATIENT TO TRANSFER TO CHAIR.
--- NOTE | 2016-11-10 10:55 | NUR ---
NGT PULLED OUT WHILE PATIENT WAS TRANSFERRING TO [facility] WITH PT. WILL REPLACE NGT.
--- NOTE | 2016-11-10 15:12 | NUR ---
PHYSICAL THERAPY HERE, PATIENT WALKED APPROXIMATELY 100FT. TOLERATED WALKING WELL. PATIENT BACK TO BED, AND DENIES ANY NEEDS.
--- NOTE | 2016-11-10 17:15 | NUR ---
PATIENT SLEEPING WITH NO DISTRESS NOTED AT THIS TIME. CALL LIGHT WITHIN REACH, BED IN LOW POSISTION.
--- NOTE | 2016-11-10 19:15 | NUR ---
REPORT RECIEVED. ASSESSMENT COMPLETED. PT ORIENTATED X4. PT IS ON TELEMETRY WITH A RATE OF 96 AND A RHYTHM OF A-FIB. PT LUNG SOUNDS ARE CLEAR IN THE UPPER LOBES AND DIMINISHED SOUNDS IN THE LOWER LOBES. PT HAS PALP PULSES IN ALL EXTREMITIES. PT ABDOMEN IS DISTENDED WITH DRESSING CDI, TORIN DRAIN IS COMPRESSED. PT HAS A CENTRAL LINE IN THE LT SUBCLAVIEN SEE IV FLOW SHEET FOR FLUIDS. WILL CONTINUE TO MONITOR PT.
--- NOTE | 2016-11-10 21:00 | NUR ---
NO VISITORS AT THIS TIME. PT POSITIONED FOR COMFORT WILL CONTINUE TO MONITOR.
--- NOTE | 2016-11-10 23:00 | NUR ---
REASSESSMENT COMPLETED. NO ACUTE CHANGES AT THIS TIME. PT POSITIONED FOR COMFORT WILL CONTINUE TO MONITOR.
[2016-11-11] VITALS (14 sets, daily range): BP systolic 134–186; BP diastolic 70–108
--- NOTE | 2016-11-11 01:00 | NUR ---
PT IS ASLEEP IN BED. WILL CONTINUE TO MONITOR.
--- NOTE | 2016-11-11 03:00 | NUR ---
REASSESSMENT COMPLETED. NO ACUTE CHANGES AT THIS TIME. POSITIONED PT FOR COMFORT WILL CONTINUE TO MONITOR.
[2016-11-11 04:10] LABS: BASOPHILS 0.6 % (0-2); EOSINOPHILS 0.1 % (0-7); HEMATOCRIT 27.4 % (42.0-54.0); HEMOGLOBIN 9.5 g/dL (13.5-17.5); LYMPHOCYTES 7.8 % (15-50); MCH 31.3 pg (26.0-34.0); MCHC 34.7 g/dL (31.0-37.0); MCV 90.1 fL (80.0-100.0); MEAN PLATELET VOLUME 9.8 fL (7.4-10.4); MONOCYTES 6.5 % (2-11); PLATELET COUNT 341 10x3/uL (130-400); RBC 3.04 10x6/uL (4.20-6.10); RDW 14.1 % (11.5-14.5); WBC 18.9 10x3/uL (4.8-10.8)
[2016-11-11 04:32] LABS: ANION GAP 12.9 mmol/L (8-16); CALCIUM 8.3 mg/dL (8.5-10.1); CARBON DIOXIDE 26.2 mmol/L (21.0-32.0); MAGNESIUM - SERUM 2.1 mg/dL (1.8-2.4); PHOSPHOROUS 3.2 mg/dL (2.5-4.9); POTASSIUM - SERUM 3.1 mmol/L (3.5-5.1)
[2016-11-11 04:35] LABS: CREATININE - SERUM 2.3 mg/dL (0.6-1.3)
--- NOTE | 2016-11-11 05:13 | NUR ---
PT ASLEEP IN BED. WILL CONTINUE TO MONITOR.
--- NOTE | 2016-11-11 07:00 | NUR ---
PT YELLING "OH, OH" AND TRYING TO MOVE IN THE BE. RIGHT AND LEFT RESTRAINTS IN PLACE. RESTRAINT TO RIGHT LEG. UNABLE TO STATE WHERE PAIN IS LOCATED. CONTINUES TO YELL. RIGHT UPPER ARM PICC INFUSING TPN AT 40ML/HR AND D5 20K+ AT 50ML/HR. VAPOTHERM AT 40 LPM. MCCARTHY SECURED TO RIGHT LEG. BED LOW POSITION. SEE ASSESSMENT FOR REST OF ASSESSMENT DATA.
--- NOTE | 2016-11-11 07:00 | NUR ---
SHIFT REPORT RECEIVED. PT AWAKE, ALERT AND ORIENTED. RESTING COMFORTABLY ON HIS BACK. ASKED TO HAVE SCD'S REMOVED. O2 AT 3L VIA NC. MCCARTHY SECURED TO RIGHT LEG. YELLOW CLEAR URINE NOTED. NG TUBE IN LEFT NARE CONNECTED TO LOW INTERMITENT SUCTION. [employer] IN USE 0.2MG EVERY 10 MINUTES WITH LOCKOUT OF 4MG/4HR. L-SUBCLAVIAN CVL. DRESSING INTACT AND ADHERED TO SKIN. TPN INFUSING AT 75ML/HR. AMIODERONE AT 0.5MG/MIN. NS KVO WITH ANTIBIOTICS INFUSING. BED LOW, CALL LIGHT IN REACH. WILL CONTINUE TO MONITOR PT.
--- NOTE | 2016-11-11 09:42 | NUR ---
NUTRITION MONITORING & EVAL PT REMAINS NPO, TPN AND LIPIDS PER MD. WILL CONTINUE TO MONITOR PT PROGRESS. RD FOLLOWING
--- NOTE | 2016-11-11 13:07 | NUR ---
DR. RESENDIZ SPOKE WITH PT ABOUT PYLOP REMOVAL. 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 HE ALSO TOLD HIM THAT NO CHEMOTHERY OR OTHER TREATMENT WOULD BE NEEDED.
--- NOTE | 2016-11-11 13:09 | NUR ---
GAVE LOPRESSOR PER ORDERS DUE TO BP INCREASING. WILL CONTINUE TO MONITOR BP. PT SITTING IN CHAIR COMFORTABLY. SIPPING ON ICE WATER. CALL LIGHT IN REACH.
--- NOTE | 2016-11-11 14:01 | NUR ---
PT TRANSFERRED BACK TO BED BY PT. PT HAD SOB. 02 SAT AT 92. 3L O2 NC STARTED BACK. PT BP IS HIGH. LAST BP WAS 186/105. WILL CONTINUE TO MONITOR BP.
--- NOTE | 2016-11-11 14:48 | NUR ---
GAVE TORODOL AND BENADRYL TO HELP PATIENT CALM DOWN. HE KEEPS YELLING "OH, Oh"
--- NOTE | 2016-11-11 14:51 | OP ---
PATIENT NAME: EMELINA MENDEZ MEDICAL RECORD: [id number] :46 LOCATION:.[facility] D.2312 ADMISSION DATE:11/03/16 SURGEON: CLARENCE RESENDIZ MD DATE OF OPERATION: 11/08/2016 PREOPERATIVE DIAGNOSES: 1. Anastomotic leak. 2. Sigmoid colon polyp status post BARI sigmoid colectomy. 3. Atrial fibrillation. POSTOPERATIVE DIAGNOSES: 1. Anastomotic leak. 2. Sigmoid colon polyp status post BARI sigmoid colectomy. 3. Atrial fibrillation. PROCEDURES: 1. Exploratory laparotomy with abdominal washout. 2. Diverting loop ileostomy. SURGEON: Clarence Resendiz MD REPORT OF PROCEDURE: The patient's abdomen was prepped and draped in sterile fashion. A Veress needle was inserted in the left upper quadrant and the abdomen was insufflated. A 5-mm trocar was placed in the right lateral abdomen. Inspection of the abdomen showed distention of the abdominal cavity. The Veress needle was removed. A second 5-mm trocar was then placed in the right lower quadrant laterally. There was a large amount of blood in the pelvis and extending up to the right and left pericolic gutters. We irrigate down a lot of blood in the pelvis and we were able to see the staple line of the anastomosis and did not initially see any sign of the perforation. There was just such a thick amount of blood, there was present with foul smelling debris, just open up the previous hand port in the suprapubic region and inserted an Nestor retractor. Once inside, we were able to find a very small leak near the anastomotic line just proximal to the anastomosis. This was oversewn with a [id number] 3-0 silk stick tie. We irrigated out all of the blood products and the material that was in the abdominal cavity extending up to the patient's subdiaphragmatic spaces and also the pericolic gutters. Care was taken to remove as much of the debris as possible. At the conclusion of the case, abdomen appeared to be clean in all areas that we were able to clean We had to extend the incision superiorly towards the base of the umbilicus in order to perform this. At this time, we placed a 19-Maltese Fer drain in the pelvis through one of the 5-mm trocar sites. An opening was then made in the right lower quadrant of the abdomen and extended down through the rectus muscles. A loop of small bowel was pulled up through this just approximately 15 cm proximal to the terminal ileum. The midline fascia was then closed with a running #1 loop PDS times 2. The skin was then closed loosely with neftali. We then matured the ileostomy in a Edwina fashion using multiple interrupted 4-0 Vicryls. A 14 red rubber catheter was used as a bridge and a new ostomy appliance was applied. At this point, a left subclavian vein central venous line was placed using sterile Seldinger technique and tied down with 4-0 silk ties and dressed appropriately. COMPLICATIONS: None. CONDITION: Critical. OPERATIVE REPORT [id number] EMELINA MENDEZ ANESTHESIA: General endotracheal. BLOOD LOSS: 100 mL. TRANSINT:[id number] Voice Confirmation ID: [id number] DOCUMENT ID: [id number] CLARENCE RESENDIZ MD at 1451 CC: [id number] DICTATION DATE: 11/08/161945 POT FISHER: 11/08/164 ADM IN [facility] [address] [id number]
--- NOTE | 2016-11-11 17:04 | NUR ---
PT RESTING COMFORTABLY ON HIS BACK. CALL LIGHT IN REACH.
--- NOTE | 2016-11-11 17:29 | NUR ---
REPORT CALLED TO MED 2. WILL GIVE LOPRESSOR FOR ELEVATED BP BEFORE PT IS TRANSFERRED.
--- NOTE | 2016-11-11 17:37 | NUR ---
LOPRESSOR 5MG IV GIVEN FOR BP OF 188/100.
--- NOTE | 2016-11-11 17:57 | NUR ---
PT TRANSFERRED TO [facility] 2 VIA BED. INTRALIPIDS AND INSULIN TRANSFERRED WITH PT.
--- NOTE | 2016-11-11 18:11 | NUR ---
REC'D PT FROM ICU TRANSFER. PT IS A&O RESTING IN BED WITH AT BEDSIDE. PT HAS A L.CHEST CVL TRIPLE LUMEN WITH BIOPATCH IN PLACE AND IS DATED WITH CLEAN DRY DRSG. PT HAS TPN @75ML/HR INFUSING VIA WHITE LUMEN, DILAUDID SOIL SPECIALIST WITH NS TO FLUSH VIA BLUE LUMEN AND AMIODARONE DRIP INFUSING @16.7ML/HR VIA RED LUMEN. PT HAS COLOSTOMY BAG TO RLQ DRAINING DARK GREEN FECES. PT HAS LLQ TORIN DRAIN IN PLACE DRAINING BLOODY DRAINAGE. PT HAS ABDOMEN NEO MIDLINE UNDER BELLY BUTTON CDI. PT HAS NG TUBE IN PLACE TO L.NARE CONNECTED TO LOW INTERMITT. SUCTION DRAINING DARK GREEN LIQUID. PT WEARING NC @3L IN PLACE AND DENIES ANY TROUBLE BREATHING. PT HAS MCCARTHY IN PLACE HANGING TO GRAVITY OFF L.SIDE OF BED, DRAINING CLEAR YELLOW URINE. NO KINKS OR ISSUES NOTED WITH MCCARTHY. PT DENIES ANY CURRENT PAIN OR NEEDS. CL IN REACH, BED IN LOWEST, SIDE RAILS X2. WILL CPOC.
[2016-11-12] VITALS: BP 178/94
--- NOTE | 2016-11-12 01:10 | NUR ---
MEDICATED WITH LOPRESSER 5MG SIVP FOR ELEVATED BP.
[2016-11-12 04:00] VITALS: BP 114/94
--- NOTE | 2016-11-12 07:20 | NUR ---
ASSESSMENT COMPLETED. DENIES ANY NEEDS. TELEMERTY SHOWS ST AT 103. 02 AT 2 L/M PER NC. MCCARTHY CATH TO BEDSIDE DRAINAGE BAG. RIGHT LOWER ABD WITH A COLEOTOMY.TORIN DRAIN TO LEFT LOWER ABD. NG TUBE TO LEFT NARE TO LOW SUCTION. TPN AT 75CC HR. CORDARONE DRIP AT 16.7 . DILAUDID AT 0.2/10/WITH A 4 HOUR LOCT OUT. WILL MONITOR
[2016-11-12 08:08] LABS: HEMATOCRIT 26.9 % (42.0-54.0); HEMOGLOBIN 9.2 g/dL (13.5-17.5); MCH 30.9 pg (26.0-34.0); MCHC 34.2 g/dL (31.0-37.0); MCV 90.3 fL (80.0-100.0); MEAN PLATELET VOLUME 9.5 fL (7.4-10.4); PLATELET COUNT 305 10x3/uL (130-400); RBC 2.98 10x6/uL (4.20-6.10); RDW 14.3 % (11.5-14.5); WBC 22.3 10x3/uL (4.8-10.8)
[2016-11-12 08:19] LABS: ANION GAP 10.5 mmol/L (8-16); CALCIUM 8.2 mg/dL (8.5-10.1); MAGNESIUM - SERUM 1.8 mg/dL (1.8-2.4); POTASSIUM - SERUM 3.5 mmol/L (3.5-5.1)
[2016-11-12 08:20] LABS: CREATININE - SERUM 1.6 mg/dL (0.6-1.3)
[2016-11-12 08:30] LABS: EOSINOPHILS 1 % (0-7); LYMPHOCYTES 13 % (15-50); MONOCYTES 3 % (2-11); NEUTROPHILS 77 % (40-80); PLATELET ESTIMATE NORMAL
[2016-11-12 08:55] VITALS: BP 189/82
--- NOTE | 2016-11-12 11:21 | NUR ---
UP IN BEDSIDE CHAIR. HR 190, B/P 103/62. CALLED PLACE TO DR. VALDES. ORDERS RECIEVED
--- NOTE | 2016-11-12 11:31 | NUR ---
10 MG CARDIZEM GIVEN IV FOR HEART RATE 190'S. WILL MONITOR FOR EFFECT
--- NOTE | 2016-11-12 11:45 | NUR ---
PT PULLED NG TUBE OUT. CALL PLACED TO DR SHAFER. NO DISTRESS NOTED
[2016-11-12 14:39] VITALS: BP 103/62
--- NOTE | 2016-11-12 15:27 | NUR ---
PT GIVEN DIG .25MG IV FOR HR 171 UNRELIVED BY CARDIZEM AND INCREASRED CORDARONE DRIP. PT NOW SR 113. NG STILL OUT. HAVE CALLED DR LOVE 4 TIMES WITH NO RETURN CALL. WILL MONITOR
--- NOTE | 2016-11-12 18:19 | NUR ---
HR 111 AFTER 2ND DOSE OF DIG. DENIES ANY NEEDS. CALL LIGHT IN REACH WITH SR UP
--- NOTE | 2016-11-12 19:30 | NUR ---
RECEIVED PT IN BED AAOX4 RESP UNLABORED COLOSTOMY INTACT TO LLQ TORIN DRAIN INTACT WITH SCANT SEROUS SANGUNOUS DRSG INTACT WILL CONTINUE TO MONITOR DENIES ANY NEEDS OR DISCOMFORT AT THIS TIME
[2016-11-12 20:00] VITALS: BP 148/85
[2016-11-13] VITALS: BP 138/82
--- NOTE | 2016-11-13 00:05 | NUR ---
FSBS 217 REGULAR INSULIN 8 UNITS GIVEN SQ LT ARM
--- NOTE | 2016-11-13 03:04 | NUR ---
RESTING QUIETLY EYES CLOSED RESP UNLABORED NAD NOTED
[2016-11-13 04:00] VITALS: BP 132/81
--- NOTE | 2016-11-13 06:03 | NUR ---
FSBS 242 REGULAR INSULIN 8 UNITS GIVEN SQ RT ARM
--- NOTE | 2016-11-13 07:40 | NUR ---
ASSESSMENT COMPLETED. TELEMERTY SHOWS ST AT 160. O2 AT 2 L/M PER NC. PT HAS A [id number] TO RIGHT SIDE OF ABD. MIDLINE INCISION NOTED. TORIN DRAIN TO LEFT SIDE OF ABD. LEFT SIDE TRIPLE LUMEN CVL WITH TPN, NS AND CORDARONE RUNING. DENIES ANY NEEDS. CALL LIGHT IN REACH WITH SR UP
[2016-11-13 08:34] VITALS: BP 147/90
[2016-11-13 12:04] VITALS: BP 139/78
[2016-11-13 16:00] VITALS: BP 149/80
--- NOTE | 2016-11-13 18:47 | NUR ---
LYING QUIETLY. DENIES ANY NEEDS. CALL LIGHT IN REACH WITH SR UP. TELEMERTY SHOWS SR.
--- NOTE | 2016-11-13 19:30 | NUR ---
RECEIVED PT IN BED EYES CLOSED RESP UNLABORED NAD NOTED
[2016-11-13 21:40] VITALS: BP 120/78
--- NOTE | 2016-11-13 21:49 | NUR ---
FSBS 333 REGULAR INSULIN 10 UNITS GIVEN SQ
[2016-11-14] VITALS: BP 148/80
--- NOTE | 2016-11-14 02:33 | NUR ---
FSBS 242 REGULAR INSULIN GIVEN SQ
[2016-11-14 04:33] LABS: BASOPHILS 0.3 % (0-2); EOSINOPHILS 1.3 % (0-7); HEMATOCRIT 28.5 % (42.0-54.0); HEMOGLOBIN 9.7 g/dL (13.5-17.5); IMMATURE GRANULOCYTES 1.7 % (0-5); LYMPHOCYTES 8.8 % (15-50); MCH 30.6 pg (26.0-34.0); MCV 89.9 fL (80.0-100.0); MEAN PLATELET VOLUME 10.2 fL (7.4-10.4); MONOCYTES 7.3 % (2-11); NEUTROPHILS 80.6 % (40-80); PLATELET COUNT 347 10x3/uL (130-400); RBC 3.17 10x6/uL (4.20-6.10); RDW 14.3 % (11.5-14.5); WBC 19.7 10x3/uL (4.8-10.8)
[2016-11-14 04:53] LABS: ALBUMIN 1.4 g/dL (3.4-5.0); ANION GAP 10.5 mmol/L (8-16); BILIRUBIN - TOTAL 0.28 mg/dL (0.2-1.3); CALCIUM 7.6 mg/dL (8.5-10.1); CREATININE - SERUM 1.4 mg/dL (0.6-1.3); MAGNESIUM - SERUM 1.9 mg/dL (1.8-2.4); PHOSPHOROUS 5.4 mg/dL (2.5-4.9); POTASSIUM - SERUM 3.5 mmol/L (3.5-5.1); PROTEIN - SERUM 4.7 g/dL (6.4-8.2)
[2016-11-14 08:00] VITALS: BP 141/80
--- NOTE | 2016-11-14 09:36 | NUR ---
RESP UL ON . IV PATENT. CALL LIGHT IN REACH. WILL CONT. PLAN OF CARE.
--- NOTE | 2016-11-14 10:06 | NUR ---
ASSESSMENT DONE. DENIES NEEDS.
[2016-11-14 12:46] VITALS: BP 150/82
--- NOTE | 2016-11-14 13:27 | NUR ---
Wound care consult: Surgery date 11/08/16. Ileostomy located RLQ of abdomen. Overall appearance is smooth and red with a red rubber drain. Stoma measures 2-1/4". There is no odor noted and has a liquid dark green stool. The peristomal skin is raw and has blistered areas. Gently cleansed and dried with warm cloth. Applied non-sting skin barrier and dusted with stoma powder. Excess powder was removed. Cut an 8x8 flextend extended wear skin barrier to fit across abdomen and then cut a 2-1/4" opening for stoma and placed it across broken down skin. Cut a Ileo flange to 2-1/4" and applied it on top of the flextend barrier. Attached drainage bag. Placed a warm compress on top to help seal barrier. Pt tolerated well. Pt denies pain at stoma site but does c/o of peristomal skin burning at times. Instructed on purpose of extra precautions for peristomal skin. Pt has had history of tape allergies in the past. Wound care will continue monitoring.
--- NOTE | 2016-11-14 14:23 | NUR ---
Nutrition follow-up: Per phone calll with Dr. Travis, RDN now managing TPN. Chart reviewd. PO4 5.4, glucose elevated RDN ordered current TPN bag stopped and D10 @ 30 started. New TPN orders sent to pharmacy. RDN following.
[2016-11-14 16:00] VITALS: BP 159/89
--- NOTE | 2016-11-14 17:56 | NUR ---
WITHOUT CHANGES OR DISTRESS NOTED AT THIS TIME. DENIES NEEDS
--- NOTE | 2016-11-14 19:33 | NUR ---
RECEIVED REPORT, WILL ASSUME CARE OF PT, DIRECTOR OF PARTNERSHIPS IN ROOM GET VITALS, PT DENIES ANY NEEDS AT THIS TIME, BED IS LOW, SRX2, CALL LIGHT IN REACH, WILL CONTINUE PLAN OF CARE
[2016-11-14 20:59] VITALS: BP 154/82
--- NOTE | 2016-11-15 00:10 | NUR ---
ASSESSMENT COMPLETE, SEE FLOWSHEET, PT LAYING AWAKE, DENIES ANY NEEDS, BED IS LOW, SRX2, CALL LIGHT IN REACH, WILL CONTINUE PLAN OF CARE
[2016-11-15 01:20] VITALS: BP 130/77
--- NOTE | 2016-11-15 03:36 | NUR ---
RECIEVED REPORT FROM MONIQUE RAHMAN @ 5409, RESUMING CARE OF PT. CHECKED ON PATIENT. C/O PAIN THAT HE STATES NOTHING COULD BE DONE ABOUT, OFFERED TO LOOK INTO PAIN MEDS AND THIS WAS REFUSED. ASSESSED ABN, MIDLINE INCISION CLEAN AND DRY - NO SIGNS OF INFECTION, COLOSTOMY DRAINING TO BAG WITH LIQUID DARK BROWN STOOLS - SIGNS PINK AND WITHOUT SIGNS OF INFECTION, ALSO TORIN DRAIN TO LLQ WITH DRESSING CDI - DRAINING AND BULB COMPRESSED. ON TELELMETRY SHOWING SR @ 98. RR EVEN AND UNLABORED. PATIENT SLIGHTLY GROGGY - STARTED TO FALL ASLEEP WHILE WE WERE HAVING A CONVERSATIONS. STATED THAT HE HAS "NOT EATEN FOR TWO WEEKS - SINCE 11/03/16" SAYS HE WANTS FOOD. INFORMED HIM THAT WAS NOT MY DECISION AND HE WOULD HAVE TO SPEAK WITH THE MD ABOUT THIS. NO S&S OF DISTRESS ATT. BED LOW AND LOCKED, CALL LIGHT IN REACH. WILL CPOC.
[2016-11-15 05:04] VITALS: BP 115/79
[2016-11-15 05:35] LABS: BASOPHILS 0.2 % (0-2); HEMATOCRIT 25.3 % (42.0-54.0); HEMOGLOBIN 8.6 g/dL (13.5-17.5); IMMATURE GRANULOCYTES 1.1 % (0-5); LYMPHOCYTES 7.2 % (15-50); MCH 30.5 pg (26.0-34.0); MCV 89.7 fL (80.0-100.0); MEAN PLATELET VOLUME 10.7 fL (7.4-10.4); MONOCYTES 5.8 % (2-11); NEUTROPHILS 83.7 % (40-80); PLATELET COUNT 471 10x3/uL (130-400); RBC 2.82 10x6/uL (4.20-6.10); RDW 14.5 % (11.5-14.5)
[2016-11-15 06:13] LABS: ALBUMIN 1.4 g/dL (3.4-5.0); ANION GAP 11.8 mmol/L (8-16); BILIRUBIN - TOTAL 0.31 mg/dL (0.2-1.3); CALCIUM 7.9 mg/dL (8.5-10.1); CARBON DIOXIDE 28.4 mmol/L (21.0-32.0); CREATININE - SERUM 1.4 mg/dL (0.6-1.3); MAGNESIUM - SERUM 1.8 mg/dL (1.8-2.4); POTASSIUM - SERUM 3.2 mmol/L (3.5-5.1); PROTEIN - SERUM 5.6 g/dL (6.4-8.2)
[2016-11-15 06:18] LABS: PHOSPHOROUS 3.5 mg/dL (2.5-4.9)
--- NOTE | 2016-11-15 08:11 | NUR ---
ASSESSMENT DONE. DENIES NEEDS.
--- NOTE | 2016-11-15 09:15 | NUR ---
RESTS IN BED WITH CALL LIGHT IN REACH. RESP UL ON . IV PATENT. WILL MONITOR NEEDS.
[2016-11-15 11:47] VITALS: BP 136/65
[2016-11-15 15:54] VITALS: BP 161/81
--- NOTE | 2016-11-15 16:29 | NUR ---
Patient Name: EMELINA MENDEZ Encounter No: [id number] : 1950 Primary Insurance: MEDICARE A & B Anticipated DC Date: 11-06-2016 Planned Disposition: INPATIENT REHAB External Planned Provider: [facility] DCP follow-up note: CM REVIEWED DOCTORS NOTES INDICATING NEED FOR REHAB SERVICES WHEN PT MEDICALLY STABLE. CM MET WITH PT IN ROOM, DISCUSSED REHAB OPTIONS AND LOCATIONS. PT WOULD LIKE TO BE CONSIDERED FOR INPATIENT REHAB AT [facility], REPORTS HE BELIEVES HE CAN PARTICIPATE IN THREE HOURS OF PROGRESSIVE THERAPY PER DAY. CM PROVIDED AND DISCUSSED CHOICE FORM / LISTING FOR [facility] FACILITIES WITH CM CONTACT INFORMATION ALSO PROVIDED. PT WOULD LIKE TO BE EVALUATED FOR INPATIENT REHAB AT [facility]. CM TO CONTINUE TO FOLLOW AND ASSIST NEEDED. Kishor Bergeron, CASE MANAGEMENT
--- NOTE | 2016-11-15 18:54 | NUR ---
WITHOUT CHANGES OR DISTRESS NOTED AT THIS TIME.
[2016-11-15 19:27] LABS: POTASSIUM - SERUM 3.6 mmol/L (3.5-5.1)
--- NOTE | 2016-11-15 19:40 | NUR ---
RECEIVED REPORT, WILL ASSUME CARE OF PT, PT IS NOW ON FULL LIQUID DIET, EATING SOME SHEBERT, BED IS LOW, SRX2, CALL LIGHT IN REACH, WILL CONTINUE PLAN OF CARE
[2016-11-15 19:56] VITALS: BP 124/85
[2016-11-16 00:17] VITALS: BP 156/65
--- NOTE | 2016-11-16 00:37 | NUR ---
ASSESSMENT COMPLETE, SEE FLOWSHEET, PT LAYING QUIETLY IN BED, DENIES ANY NEEDS AT THIS TIME, BED IS LOW, SRX2, CALL LIGHT IN REACH, WILL CONTINUE PLAN OF CARE
--- NOTE | 2016-11-16 04:12 | NUR ---
RECIEVED REPORT FROM MONIQUE RAHMAN @ 7676, CHECKED IN ON PT. STATED HE WAS HAPPY TO BE ABLE TO BE ON HIS FULL LIQUID DIET NOW. DENIES ANY PAIN/NEEDS ATT. BED LOW AND LOCKED, CALL LIGHT IN REACH. WILL CPOC.
--- NOTE | 2016-11-16 04:33 | NUR ---
ATTEMPTED TO DRAW LAB THROUGH THE PT'S CVL LINE, NO RETURN. INFORMED LAB THEY WOULD NEED TO DO A PERIPHERAL DRAW.
[2016-11-16 05:12] VITALS: BP 114/69
[2016-11-16 06:34] LABS: ANION GAP 11.2 mmol/L (8-16); CALCIUM 7.9 mg/dL (8.5-10.1); CARBON DIOXIDE 27.3 mmol/L (21.0-32.0); CREATININE - SERUM 1.5 mg/dL (0.6-1.3); POTASSIUM - SERUM 3.5 mmol/L (3.5-5.1)
[2016-11-16 06:36] LABS: BASOPHILS 0.3 % (0-2); EOSINOPHILS 2.3 % (0-7); HEMATOCRIT 26.1 % (42.0-54.0); HEMOGLOBIN 8.9 g/dL (13.5-17.5); IMMATURE GRANULOCYTES 1.3 % (0-5); LYMPHOCYTES 7.6 % (15-50); MCH 30.6 pg (26.0-34.0); MCHC 34.1 g/dL (31.0-37.0); MCV 89.7 fL (80.0-100.0); MEAN PLATELET VOLUME 10.4 fL (7.4-10.4); MONOCYTES 6.4 % (2-11); NEUTROPHILS 82.1 % (40-80); PHOSPHOROUS 2.6 mg/dL (2.5-4.9); PLATELET COUNT 537 10x3/uL (130-400); RBC 2.91 10x6/uL (4.20-6.10); WBC 25.4 10x3/uL (4.8-10.8)
--- NOTE | 2016-11-16 07:18 | NUR ---
PT SITTING UP IN BED WATCHING TV DENIES NEEDS WILL CONT TO MONITOR
--- NOTE | 2016-11-16 09:14 | NUR ---
CVL DRESSING WAS CHANGED USING STERILE TECHNIQUE. SWAB CAPS INTACT. SIGNED AND DATED ADHERED TO SKIN.
[2016-11-16 09:40] VITALS: BP 163/79
--- NOTE | 2016-11-16 11:13 | NUR ---
Rehab Prescreening Consult recieved and the patient was visited. He meets IRF criteria and feels he will benefit from the therapy. He will be accepted when the physician feels he is medically stable, and able to participate in 3 hours of therapy a day. The Roz Moran RN has been made aware. Karin Deluca RN Clinical Liaison, Rehab
[2016-11-16 12:25] VITALS: BP 155/130
--- NOTE | 2016-11-16 13:34 | NUR ---
Patient Name: EMELINA MENDEZ Encounter No: [id number] : 1950 Primary Insurance: MEDICARE A & B Anticipated DC Date: 11-16-2016 Planned Disposition: Inpatient Rehab External Planned Provider: [facility] DCP follow-up note: CM RECEIVED MESSAGE FROM RN ALEXIS HOUSE THAT INPATIENT REHAB HAS SCREEN PT AND WILL ACCEPT PT WHEN PT IS STABLE FOR DISCHARGE. CM MET WITH PT IN ROOM WHO IS IN AGREEMENT WITH DISCHARGE TO INPATIENT REHAB, IMPORTANT MESSAGE FROM MEDICARE PROVIDED. CM NOTIFIED BEDSIDE NURSE. NOTIFY INPATIENT REHAB WHEN PT IS READY FOR DISCHARGE; [facility] INPATIENT REH[facility] TO CONTACT MED 2 NURSE WITH ROOM NUMBER WHEN READY TO ACCEPT PT AND NURSE REPORT. Kishor Bergeron, CASE MANAGEMENT
--- NOTE | 2016-11-16 13:44 | NUR ---
Nutrition follow: Spoke with Dr. Travis re: TPN Received order to discontinue TPN before discharge to IP rehab. RDN wrote order to decrease TPN to 35 ml/hr x 30 minutes then discontinue. RDN following.
--- NOTE | 2016-11-16 14:04 | NUR ---
DC PT TORIN DRAIN. PT TOLERATED WELL. DSNG PLACED WITH 2X2 AND TEGADERM CDI. INITIATED BLADDER TRAINING. PT VERBALIZES UNDERSTANDING. PT AMIODORONE DRIP WAS DC PER DR ORDER PO DOSES OF HOME MEDICATION WERE GIVEN. TPN HAS BEEN LOWERED TO LOWER RATE, AFTER 30 MINS WILL DC ORDERED. PT EATING AND TOLERATING FULL LIQUID DIET. POSSIBLE DC TO REHAB TODAY
--- NOTE | 2016-11-16 15:44 | NUR ---
Patient's Cordarone drip was stopped at 14:00 today. The PD prefers to monitor patient overnight and plan to accept tomorrow. The CM Brandyn and flow co-ordinator have been made aware. Karin Deluca RN CL
[2016-11-16 16:29] VITALS: BP 127/70
--- NOTE | 2016-11-16 17:38 | NUR ---
PT SITTING UP IN BED DENIES NEEDS WILL CONT TO MONITOR
[2016-11-16 19:00] VITALS: BP 125/62
--- NOTE | 2016-11-16 19:28 | NUR ---
RECEIVED REPORT, WILL ASSUME CARE OF PT, ASKING FOE SLEEP AID, EXPLAINED WILL GIVE WITH 2100 MEDS, BED IS LOW, SRX2, CALL LIGHT IN REACH, WILL CONTINUE PLAN OF CARE
--- NOTE | 2016-11-17 03:11 | NUR ---
ASSESSMENT COMPLETE, PT AWAKE, DENIES ANY NEEDS AT THIS TIME, BED IS LOW, SRX2, BED ALARM ON, CALL LIGHT IN REACH, WILL CONTINUE PLAN OF CARE
[2016-11-17 06:15] LABS: BASOPHILS 0.2 % (0-2); EOSINOPHILS 2.1 % (0-7); HEMATOCRIT 27.3 % (42.0-54.0); HEMOGLOBIN 9.1 g/dL (13.5-17.5); IMMATURE GRANULOCYTES 1.3 % (0-5); LYMPHOCYTES 6.1 % (15-50); MCH 30.2 pg (26.0-34.0); MCHC 33.3 g/dL (31.0-37.0); MCV 90.7 fL (80.0-100.0); MEAN PLATELET VOLUME 10.4 fL (7.4-10.4); MONOCYTES 7.1 % (2-11); NEUTROPHILS 83.2 % (40-80); PLATELET COUNT 749 10x3/uL (130-400); RBC 3.01 10x6/uL (4.20-6.10); WBC 28.2 10x3/uL (4.8-10.8)
[2016-11-17 06:22] VITALS: BP 178/83
[2016-11-17 06:36] LABS: ANION GAP 9.2 mmol/L (8-16); CALCIUM 7.6 mg/dL (8.5-10.1); CARBON DIOXIDE 27.4 mmol/L (21.0-32.0); CREATININE - SERUM 1.3 mg/dL (0.6-1.3); MAGNESIUM - SERUM 1.8 mg/dL (1.8-2.4); PHOSPHOROUS 2.5 mg/dL (2.5-4.9)
[2016-11-17 06:41] LABS: POTASSIUM - SERUM 4.6 mmol/L (3.5-5.1)
--- NOTE | 2016-11-17 07:14 | NUR ---
PT SITTING UP IN BED WATCHING TV, DENIES NEEDS WILL CONT TO MONITOR
[2016-11-17 08:27] VITALS: BP 161/75
--- NOTE | 2016-11-17 10:18 | NUR ---
PT IS ALERT AND ORIENTED X4 BUT KEEPS TRYING TO GET UP TO "GO TO THE BATHROOM" DOES NOT CALL FOR HELP. PT IS ON BED ALARM TO ALERT STAFF. WHILE TRYING TO GET OUT OF BED PT PULLED HIS COLOSTOMY BAG OFF AND ALMOST PULLED CVL AND MCCARTHY OUT. REDRESSED COLOSTOMY, SEVERE EXCORIATION NOTED AROUND STOMA SITE. STOMA ITSELF IS RED AND BEEFY IN COLOR. CVL AND MCCARTHY STILL INTACT AND PATENT. BREVING WAS PAGED R/T PT PULLING AT THINGS AND WBC COUNT 28,000 LOW GRADE TEMP GAVE PT A COMPLETE BATH AND LINEN CHANGE. PT LAYING IN THE BED TALKING ON PHONE WITH FAMILY MEMBER BA IS ON
--- NOTE | 2016-11-17 10:36 | NUR ---
PT BA WENT OFF AGAIN. PT SITTING UP ON SIDE OF BED PULLING AT CVL LINE AGAIN. PT STATES "I NEED TO GET UP AND GET MY STUFF SO I CAN GO!" PT GETS UP WITH ASSISTANCE AND WENT TO CONCRETE BATCHING PLANT OPERATOR HIS BAGS. PT COMBATIVE WHEN STAFF TRIES TO GET HIM TO GET BACK TO BED. HE CALLED A FRIEND AND TOLD HIM TO COME PICK HIM UP FROM THE HOSPITAL. EXPLAINED TO PT SEVERAL TIMES THAT HE CAN NOT LEAVE HE HAS TO STAY FOR MEDICAL TREATMENT. PT LAID BACK DOWN IN BED. BA IS ON AGAIN. STILL WAITING FOR DR LOVE TO CALL BACK
[2016-11-17 12:05] VITALS: BP 135/88
[2016-11-17 16:43] VITALS: BP 141/72
--- NOTE | 2016-11-17 18:58 | NUR ---
PT SITTING UP IN BED WATCHING TV DENIES NEEDS
--- NOTE | 2016-11-17 19:25 | NUR ---
RECEIVED REPORT, WILL ASSUME CARE OF PT, PT SEEMS CONFUSED, BED IS LOW, SRX2, BED ALARM IS ON, CALL LIGHT IN REACH, WILL CONTINUE PLAN OF CARE
[2016-11-17 20:00] VITALS: BP 137/74
--- NOTE | 2016-11-17 23:09 | NUR ---
ASSESSMENT COMPLETE, 022L, [id number]-XR, IV-L.SUBCLAVIN TRIPLE LUMEN-NS @KVO, MCCARTHY, COLOSTOMY L. SIDE ABDOMEN, MIDLINE INCISION WITH NEO, PT IS CONFUSED, BED IS LOW, SRX2, BED ALARM IS ON, CALL LIGHT IN REACH, WILL CONTINUE PLAN OF CARE
[2016-11-18 04:00] VITALS: BP 155/78
[2016-11-18 06:39] LABS: BASOPHILS 0.3 % (0-2); EOSINOPHILS 1.2 % (0-7); HEMATOCRIT 24.4 % (42.0-54.0); HEMOGLOBIN 8.2 g/dL (13.5-17.5); IMMATURE GRANULOCYTES 1.9 % (0-5); LYMPHOCYTES 8.8 % (15-50); MCH 30.6 pg (26.0-34.0); MCHC 33.6 g/dL (31.0-37.0); MEAN PLATELET VOLUME 10.2 fL (7.4-10.4); MONOCYTES 9.5 % (2-11); NEUTROPHILS 78.3 % (40-80); PLATELET COUNT 777 10x3/uL (130-400); RBC 2.68 10x6/uL (4.20-6.10); RDW 15.2 % (11.5-14.5); WBC 21.7 10x3/uL (4.8-10.8)
[2016-11-18 06:49] LABS: ALBUMIN 1.3 g/dL (3.4-5.0); ANION GAP 11.3 mmol/L (8-16); BILIRUBIN - TOTAL 0.43 mg/dL (0.2-1.3); CALCIUM 7.3 mg/dL (8.5-10.1); CARBON DIOXIDE 25.9 mmol/L (21.0-32.0); CREATININE - SERUM 1.1 mg/dL (0.6-1.3); MAGNESIUM - SERUM 1.7 mg/dL (1.8-2.4); PHOSPHOROUS 2.4 mg/dL (2.5-4.9); POTASSIUM - SERUM 4.2 mmol/L (3.5-5.1); PROTEIN - SERUM 5.7 g/dL (6.4-8.2)
--- NOTE | 2016-11-18 07:08 | NUR ---
PT SITTING UP IN BED SLEEPING NO S/S DISTRESS NOTED RR EVEN AND UNLABORED. WILL CONT TO MONITOR
[2016-11-18 08:58] VITALS: BP 157/81
[2016-11-18 11:55] VITALS: BP 150/72
--- NOTE | 2016-11-18 13:54 | NUR ---
Nutrition Follow Up: Pt reported that his appetite is good. He said that he is tolerating current diet and denied any N/V. Pt agreed to Glucerna to aid in glucose control and prefers vanilla flavor. He requested orange sherbet with lunch and dinner. Pt is eating 75% meal avg on a full liquid diet. Wt gain since admit noted. +BM 11/17/16. Labs reviewed. Meds noted including Humulin. Rec advancing diet as tolerated when medically feasible. Will change Ensure to Glucerna and continue to send with meals. Will continue to send selective menus and honor food preferences within diet ordered. RD following.
--- NOTE | 2016-11-18 14:00 | NUR ---
PT COLOSTOMY BAG BUSTED. BAG CHANGED.
--- NOTE | 2016-11-18 16:24 | NUR ---
PT SITTING UP IN BED WITH FRIEND VISITING AT BEDSIDE WILL CONT TO MONITOR
--- NOTE | 2016-11-18 18:10 | NUR ---
PT LAYING FLAT IN BED SLEEPING NO S/S DISTRESS NOTED RR EVEN AND UNLABORED
--- NOTE | 2016-11-18 19:30 | NUR ---
PT IS RESTING IN BED WITH EYES OPEN. ALERT, BUT CONFUSED TO TIME, PLACE AND SITUATION. PT ANSWERING QUESTIONS WITH OTHER QUESTIONS ABOUT THINGS THAT I PRESUME HAPPENED IN HIS PAST, OR PEOPLE I DO NOT KNOW. RLQ ABD ILEOSTOMY NOTED. SMALL AMOUNT OF SOFT BROWN STOOL NOTED IN BAG. CLIPS ARE INTACT TO MIDLINE LOWER ABD INCISION. NO DRAINAGE NOTED. LEFT CHEST CENTRAL LINE NOTED. MCCARTHY CATH IS PATENT AND DRAINING TO A GRAVITY BAG. O2 IS ON @ 2LPM PER NC. NO SOB NOTED. SR'S ARE UP X3 IN BED. CALL LIGHT AND BEDSIDE TABLE ARE WITHIN EASY REACH.
[2016-11-18 20:00] VITALS: BP 143/73
--- NOTE | 2016-11-18 21:57 | NUR ---
PT IS RESTING QUIETLY IN BED WITH EYES CLOSED. RESPS ARE EVEN AND UNLABORED. HE AWAKENS AND YELLS OUT AT TIMES, BUT DENIES NEEDS WHEN HE DOES.
[2016-11-18 23:57] VITALS: BP 138/84
--- NOTE | 2016-11-19 00:09 | NUR ---
RESTING IN BED WITH EYES CLOSED.
--- NOTE | 2016-11-19 03:00 | NUR ---
PT IS RESTING QUIETLY IN BED WITH EYES CLOSED. NO DISTRESS NOTED.
[2016-11-19 04:00] VITALS: BP 138/84
[2016-11-19 05:43] LABS: BASOPHILS 0.3 % (0-2); EOSINOPHILS 1.1 % (0-7); HEMATOCRIT 24.3 % (42.0-54.0); HEMOGLOBIN 8.1 g/dL (13.5-17.5); IMMATURE GRANULOCYTES 2.4 % (0-5); MCH 30.5 pg (26.0-34.0); MCHC 33.3 g/dL (31.0-37.0); MCV 91.4 fL (80.0-100.0); MEAN PLATELET VOLUME 9.7 fL (7.4-10.4); MONOCYTES 10.9 % (2-11); NEUTROPHILS 75.3 % (40-80); PLATELET COUNT 792 10x3/uL (130-400); RBC 2.66 10x6/uL (4.20-6.10); RDW 14.9 % (11.5-14.5)
[2016-11-19 06:13] LABS: MAGNESIUM - SERUM 1.7 mg/dL (1.8-2.4); PHOSPHOROUS 2.3 mg/dL (2.5-4.9); POTASSIUM - SERUM 4.1 mmol/L (3.5-5.1)
--- NOTE | 2016-11-19 07:03 | NUR ---
PT IN BED RESTING. AROUSES TO VOICE. DENIES NEEDS AT THIS TIME. WILL CONTINUE TO MONITOR.
[2016-11-19 09:34] VITALS: BP 165/78
--- NOTE | 2016-11-19 09:38 | NUR ---
RESP UL ON . RY NEEDS AT THIS TIME. CALL LIGHT IN REACH. WILL CONT. PLAN OF CARE.
--- NOTE | 2016-11-19 10:00 | NUR ---
ILEOSTOMY DRESSING CHANGED.
[2016-11-19 12:38] VITALS: BP 141/77
[2016-11-19 16:48] VITALS: BP 152/73
--- NOTE | 2016-11-19 19:28 | NUR ---
CALLED DAUGHTER MARLON [phone] TO GET VERBAL CONSENT, SHE MADE A 3 WAY CALL TO SON-PRITESH MENDEZ, TO GET VERBAL CONSENT, WAS TOLD THEY WANT TO SPEAK TO BILLIE MICHAEL, FOR MORE EXPLAINING BEFORE THEY WOULD GIVE CONSENT.
[2016-11-19 20:00] VITALS: BP 157/85
--- NOTE | 2016-11-19 20:29 | NUR ---
RECEIVED REPORT, WILL ASSUME CARE OF PT, BED IS LOW, SRX2, BED ALARM IS ON, WILL CONTINUE PLAN OF CARE
[2016-11-20] VITALS (24 sets, daily range): BP systolic 91–174; BP diastolic 47–89
--- NOTE | 2016-11-20 04:03 | NUR ---
ASSESSMENT COMPLETE, SEE FLOWSHEET, BED IS LOW, SRX2, BED ALARM IS ON, PT SLEEPING ON R.SIDE, CALL LIGHT IN REACH, WILL CONTINUE PLAN OF CARE
[2016-11-20 05:37] LABS: BASOPHILS 0.4 % (0-2); EOSINOPHILS 1.6 % (0-7); HEMATOCRIT 23.7 % (42.0-54.0); HEMOGLOBIN 7.9 g/dL (13.5-17.5); IMMATURE GRANULOCYTES 2.3 % (0-5); LYMPHOCYTES 8.9 % (15-50); MCH 30.6 pg (26.0-34.0); MCHC 33.3 g/dL (31.0-37.0); MCV 91.9 fL (80.0-100.0); MEAN PLATELET VOLUME 9.6 fL (7.4-10.4); MONOCYTES 11.7 % (2-11); NEUTROPHILS 75.1 % (40-80); PLATELET COUNT 701 10x3/uL (130-400); RBC 2.58 10x6/uL (4.20-6.10); RDW 14.9 % (11.5-14.5); WBC 18.2 10x3/uL (4.8-10.8)
[2016-11-20 05:52] LABS: CALC OSMOLALITY 266 mosm/kg (275-300); CALCIUM 7.4 mg/dL (8.5-10.1); CARBON DIOXIDE 27.7 mmol/L (21.0-32.0); CHLORIDE - SERUM 99 mmol/L (98-107); CREATININE - SERUM 0.9 mg/dL (0.6-1.3); GLUCOSE 135 mg/dL (74-106); MAGNESIUM - SERUM 1.8 mg/dL (1.8-2.4); PHOSPHOROUS 2.2 mg/dL (2.5-4.9); SODIUM 132 mmol/L (136-145); UREA NITROGEN 12 mg/dL (7-18); eGFR NON AFRICAN AMERICAN 89 mL/min (90-120)
--- NOTE | 2016-11-20 07:28 | NUR ---
PT IN BED. ATTENTION FOCUSED TOWARDS TELEVISION. DENIES NEEDS AT THIS TIME. WILL CONTINUE TO MONITOR.
--- NOTE | 2016-11-20 08:33 | NUR ---
Nutrition Monitoring and Eval: Chart reviewed. TPN started 11/19/16. Labs reviewed this am - Phos and Ca now low. Meds noted. Will adjust TPN. Will order Phos, Mg and BMP x 3 days. Will check Triglycerides. RD will monitor pt progress.
--- NOTE | 2016-11-20 10:05 | NUR ---
IN SURGERY AT THIS TIME. WILL CONT. PLAN OF CARE.
[2016-11-20 11:12] LABS: APTT 31.3 SECONDS (22.8-39.4); INR 1.03 (0.85-1.17); PROTIME 13.3 SECONDS (11.6-15.0)
--- NOTE | 2016-11-20 13:20 | NUR ---
DR ZIEGLER ON FLOOR. PT 02 MOVED UP TO 5L DUE TO O2 SAT BEING 84. DR ZIEGLER DISCUSSED THORACENTESIS WITH JESSIKA JONAS. REPORT CALLED TO RADHAMES OCONNELL IN ICU.
--- NOTE | 2016-11-20 13:25 | NUR ---
REC'D IN ROOM 2307 AND HOOKED UP TO CM.
--- NOTE | 2016-11-20 13:35 | NUR ---
TO CT FOR CT GUIDED THORANCENTESIS AND ABCESS DRAINAGE.
--- NOTE | 2016-11-20 14:15 | NUR ---
REPORT GAVE TO XIN JONES RN AND SHE ASSUMED CARE.
[2016-11-20 14:51] LABS: HEMATOCRIT 23.7 % (42.0-54.0); HEMOGLOBIN 7.6 g/dL (13.5-17.5); MCHC 32.1 g/dL (31.0-37.0); MCV 93.7 fL (80.0-100.0); PLATELET COUNT 649 10x3/uL (130-400); RBC 2.53 10x6/uL (4.20-6.10); RDW 15.2 % (11.5-14.5); WBC 25.3 10x3/uL (4.8-10.8)
[2016-11-20 15:06] LABS: LYMPHOCYTES 8 % (15-50); MONOCYTES 3 % (2-11); NEUTROPHILS 84 % (40-80); PLATELET ESTIMATE INCREASED; PLATELET MORPHOLOGY GIANT PLTS PRESENT
[2016-11-20 15:15] LABS: ALBUMIN 1.6 g/dL (3.4-5.0); ALKALINE PHOSPHATASE 116 U/L (46-116); ALT (SGPT) 22 U/L (10-68); BILIRUBIN - TOTAL 0.26 mg/dL (0.2-1.3); CALCIUM 7.2 mg/dL (8.5-10.1); CARBON DIOXIDE 28.5 mmol/L (21.0-32.0); CHLORIDE - SERUM 101 mmol/L (98-107); CKMB 0.5 U/L (0.0-3.6); CREATINE KINASE 50 UL (21-232); CREATININE - SERUM 1.1 mg/dL (0.6-1.3); MAGNESIUM - SERUM 1.8 mg/dL (1.8-2.4); PROTEIN - SERUM 6.1 g/dL (6.4-8.2); SODIUM 132 mmol/L (136-145); UREA NITROGEN 13 mg/dL (7-18); eGFR NON AFRICAN AMERICAN 71 mL/min (90-120)
[2016-11-20 15:19] LABS: CALC OSMOLALITY 269 mosm/kg (275-300); GLUCOSE 190 mg/dL (74-106); PHOSPHOROUS 4.1 mg/dL (2.5-4.9); POTASSIUM - SERUM 4.9 mmol/L (3.5-5.1); TROPONIN-I < 0.017 ng/mL (0.000-0.060)
[2016-11-20 16:24] LABS: PROTEIN - BODY FLUID 2.2 G/DL
--- NOTE | 2016-11-20 17:04 | NUR ---
1435 RETURNED ROOM POST CODE BLUE AND 400 CC FLUID REOVED FROM RIGHT LUNG. PATIENT AWAKE FIGHTING RESTRAINTS AND BITTING ON ETT. DR. ZIEGLER HERE ORDERS FOR DIPRIVAN STARTED AT 5 MCG/KG/MIN INCREASED TO 10 MCG/KG/MIN. NOW AT 15 MCG/KG/MIN. STILL AWAKE AND OBEYS COMMANDS. BILATERAL LUNG SOUNDS EQUAL WITH VERY POOR LUNG SOUNDS. ABD TIGHT WITH BOWEL SOUNDS. OPEN TO AIR DRY WOUNDS ON ABD. ILESOTOMY LEAKING DARK GREEN LIQUID. BANDAGE ON RIGHT SIDE DRY AND INTACT. MCCARTHY CATH PATENT AND DRAINING CLOUDY YELLOW URINE. MONITOR SR TO SB. LEFT SUBCLAVIAN TRIPLE LUMEN CENTRAL LINE WAS INFUSING NS WIDE OPEN AND TPN AT 40 ML HOUR ON ARRIAL. CURRENTLLY INFUSING WITH 1/2 NS AT 50 ML HOUR. DIPRIVAN AND TPN AT 40 ML HOUR. 1ST UNIT BLOOD STARTED INFUSING WITHOUT REACTION. FAMILY HERE QUESTIONS ANSWERED. SCD ON LOWER LEGS. ETT SECURE TO VENT
[2016-11-20 17:12] LABS: EOS BF 2 %; LYMPH - BF 30 %; MACROPHAGES BF 8 %; MESOTHELIALS BF 16 %; NEUT - BF 44 %
--- NOTE | 2016-11-20 19:40 | NUR ---
REC'D PT ON VENT VIA 8.0 ETT TAPED @ 24CM LIPLINE SEE FLOWSHEET FOR VENT SETTINGS, PT AROUSABLE TO DEEP STIMULI, RIGHT PUPIL 3MM AND BRISK, LEFT 5MM AND SLUGGISH, DOES NOT FOLLOW COMMANDS AT THIS TIME, RIGHT NARE NGT TO LIWS WITH GREEN DRAINAGE NOTED, LTLSCL DRSG CDI WITH 1/2NS @ 50CC/HR, TPN BAG #2 @ 40CC/HR, DIPIRVAN @ 25MCG/KG/MIN, AND 2ND UNIT PRBC INFUSING, ABD DISTENDED, SCABS NOTED TO LEFT OF MIDLINE, MIDLINE ABDOMINAL INCISION WITH NEO CDI RIGHT LOWER ABD NEO CDI, RIGHT LOWER QUADRANT ILEOSTOMY WITH GREEN DRAINAGE, STOMA PINK AND MOIST, MCCATRHY PATENT DRAINING YELLOW URINE, BILAT SCDS INTACT, PPP, BILAT SOFT WRIST RESTRAINTS IN USE, SR UP X 2, VISIBLE TO NURSES STATION.
--- NOTE | 2016-11-20 20:30 | NUR ---
SPOKE WITH DR. LOVE BY PHONE, UPDATE PROVIDED, NO NEW ORDERS REC'D
--- NOTE | 2016-11-20 20:40 | NUR ---
ROUTINE MEDS GIVEN, PHILIPPE HELD AT THIS TIME, HR 59, BP 109/66
--- NOTE | 2016-11-20 21:00 | NUR ---
NO VISITORS IN AT THIS TIME.
--- NOTE | 2016-11-20 23:30 | NUR ---
REASSESSMENT COMPLETED, PT AROUSABLE TO STIMULI, WILL FOLLOW SOME COMMANDS, ROUTINE MEDS GIVEN ORDERED, VSS, WILL CONT TO MONITOR CLOSELY FOR CHANGES.
[2016-11-21] VITALS (24 sets, daily range): BP systolic 119–157; BP diastolic 61–84
--- NOTE | 2016-11-21 | NUR ---
SPOKE WITH PT'S SON PRITESH BY PHONE, UPDATE PROVIDED AND QUESTIONS ANSWERED, INFORMED SON AND DAUGHTER WOULD BE HERE IN THE AM TO SPEAK WITH PHYSICIANS.
--- NOTE | 2016-11-21 02:10 | NUR ---
ROUTINE MEDS GIVEN, FSBS 147, NO COVERAGE REQUIRED, RESTING EYES CLOSED ON VENT, RESP 24, BP STABLE WILL CONTINUE TO MONITOR
--- NOTE | 2016-11-21 04:15 | NUR ---
RADIOLOGY AT BS FOR AM CXR, PT REPOSITIONED FOR COMFORT
[2016-11-21 05:34] LABS: BASOPHILS 0.4 % (0-2); EOSINOPHILS 0.6 % (0-7); HEMATOCRIT 25.7 % (42.0-54.0); HEMOGLOBIN 8.7 g/dL (13.5-17.5); IMMATURE GRANULOCYTES 1.8 % (0-5); LYMPHOCYTES 9.8 % (15-50); MCH 30.5 pg (26.0-34.0); MCHC 33.9 g/dL (31.0-37.0); MEAN PLATELET VOLUME 9.2 fL (7.4-10.4); MONOCYTES 11.2 % (2-11); NEUTROPHILS 76.2 % (40-80); RBC 2.85 10x6/uL (4.20-6.10); RDW 16.6 % (11.5-14.5)
[2016-11-21 05:38] LABS: MCV 90.2 fL (80.0-100.0); PLATELET COUNT 448 10x3/uL (130-400); WBC 11.4 10x3/uL (4.8-10.8)
[2016-11-21 05:52] LABS: ALBUMIN 1.8 g/dL (3.4-5.0); ALKALINE PHOSPHATASE 85 U/L (46-116); ALT (SGPT) 19 U/L (10-68); BILIRUBIN - TOTAL 0.44 mg/dL (0.2-1.3); CALC OSMOLALITY 270 mosm/kg (275-300); CALCIUM 7.4 mg/dL (8.5-10.1); CARBON DIOXIDE 25.1 mmol/L (21.0-32.0); CHLORIDE - SERUM 99 mmol/L (98-107); GLUCOSE 162 mg/dL (74-106); MAGNESIUM - SERUM 1.7 mg/dL (1.8-2.4); PROTEIN - SERUM 5.9 g/dL (6.4-8.2); SODIUM 133 mmol/L (136-145); TRIGLYCERIDE 183 mg/dL (30-200); UREA NITROGEN 14 mg/dL (7-18); eGFR NON AFRICAN AMERICAN 79 mL/min (90-120)
[2016-11-21 05:53] LABS: PHOSPHOROUS 2.3 mg/dL (2.5-4.9); POTASSIUM - SERUM 4.1 mmol/L (3.5-5.1)
--- NOTE | 2016-11-21 06:00 | NUR ---
AM MEDS GIVEN, PT RESTING EYES CLOSED ON VENT, VSS, NO DISTRESS NOTED, NO VISITORS IN AT THIS TIME
--- NOTE | 2016-11-21 07:15 | NUR ---
REPORT RECIEVED FROM SEARCHLIGHT OPERATOR NURSE. ASSESSMENT COMPLETE PER FLOWSHEET. REFER FOR DETAILS. WILL CONT TO ASSESS FOR CHANGES THROUGHOUT SHIFT.
--- NOTE | 2016-11-21 09:00 | NUR ---
DR. ROSEN AT BEDSIDE. UPDATE PROVIDED.
--- NOTE | 2016-11-21 10:37 | NUR ---
Nutrition follow-up: Pt now intubated s/p code blue TPN orders written 11/20/[address] Curry for D25W,4.25%AA @ 40 ml/hr. Labs reviewed New orders to pharmacy today. RDN following.
--- NOTE | 2016-11-21 11:00 | NUR ---
MCCARTHY CARE COMPLETED USING SURE STEP MCCARTHY CARE WIPES. PT TURNED AND REPOSITIONED FOR COMFORT.
--- NOTE | 2016-11-21 11:05 | NUR ---
11/21/2016 10:54 DCP: Discharge Planning Patient Name: CECILE ROLDAN Encounter No: [id number] : 04-06-1955 Primary Insurance: MEDICARE A & B Planned Disposition: Home with Home Health DCP follow-up note: Patient may need rehab or SNF evaluation prior to dc. Case management will follow and assist as needed. Deanne Bryant
--- NOTE | 2016-11-21 12:00 | NUR ---
FAMILY AT BEDSIDE. UPDATE PROVIDED.
--- NOTE | 2016-11-21 15:00 | NUR ---
FAMILY AT BEDSIDE.
--- NOTE | 2016-11-21 15:00 | NUR ---
CENTRAL LINE DRESSING CHANGED USING STERILE TECHNIQUE. NO S/SX OF INFECTION NOTED. BIOPATCH IN PLACE. SWAB CAPS TO ALL OPEN PORTS. IV TUBING LABELED.
--- NOTE | 2016-11-21 17:00 | NUR ---
JEVITY 1.2 STARTED AT 20CC/HR PER NGT. WILL MONITOR RESIDUALS.
--- NOTE | 2016-11-21 18:00 | NUR ---
F/C CHANGED PER ORDERS OF DR. JACOBS. 16F PLACED USING STERILE TECHNIQUE WITH NO DIFFICULTIES NOTED UPON PLACEMENT. CONCENTRATED URINE WITH DARK PARTICLES NOTED TO COLLECTION METER.
--- NOTE | 2016-11-21 19:30 | NUR ---
REPORT REC'D AND CARE ASSUMED, REC'D PT ON VENT VIA 8.0 ETT TAPED SECURELY @ 24CM LIPLINE, SEE FLOWSHEET FOR VENT SETTINGS, PT AWAKENS TO VERBAL STIMULI, FOLLOWING COMMANDS, AND NODDING YES AND NO APPROPRIATELY, RIGHT NARE NGT SECURED WITH JANETT, PLACEMENT VERIFIED VIA SM AIR BOLUS AUSCULTATED OVER EPIGASTRIM, JEVITY 1.2 INFUSING @ 20CC/HR, RESIDUAL 0, ABDOMEN DISTENDED, BS HYPOAACTIVE, MIDLINE ABDOMINAL INCISION WITH NEO CDI, OPEN TO AIR, RIGHT ILEOSTOMY WITH LIQUID GREEN/BROWN DRAINAGE NOTED, RIGHT INNER THIGH WITH SCAB NOTED, MCCARTHY PATENT DRAINING YELLOW URINE, BILAT SCD'S INTACT, PPP, BILAT SOFT WRIST RESTRAINTS INTACT.
--- NOTE | 2016-11-21 20:40 | NUR ---
EVENING MEDS GIVEN, ORAL CARE PROVIDED, PT REPOSITIONED ONTO BACK, VSS.
--- NOTE | 2016-11-21 21:20 | NUR ---
FAMILY AT BS, UPDATE GIVEN AND QUESTIONS ANSWERED.
--- NOTE | 2016-11-21 22:00 | NUR ---
PT RESTLESS IN BED WHEN ASKED IF UNCOMFORTABLE, SHAKES HEAD YES, POINTS TO LEFT HIP, PT REPOSITIONED UP IN BED AND TURNED ONTO RIGHT SIDE SUPPORTED WITH PILLOWS, PT TOLERATED WELL, DIPRIVAN INCREASED AT THIS TIME.
--- NOTE | 2016-11-21 23:20 | NUR ---
REASSESSMENT COMPLETED, PT REPOSITIONED ONTO BACK, EXT'S ELEVATED ON PILLOWS, VSS, WILL CONT TO MONITOR FOR CHANGES.
[2016-11-22] VITALS (24 sets, daily range): BP systolic 106–132; BP diastolic 57–83
--- NOTE | 2016-11-22 00:30 | NUR ---
ILEOSTOMY BAG LEAKNING, COMPLETE BATH AND LINEN CHANGE PROVIDED, PT REPOSITIONED UP AND ONTO LEFT SIDE SUPPORTED WITH PILLOWS, BP STABLE, RT AT BS AND ETT SHANKAR CHANGED OUT, PT TOLERATED WELL, SR UP X 2, VISIBLE TO NURSES STATION.
--- NOTE | 2016-11-22 01:00 | NUR ---
VANC TROUGH DRAWN AND SENT TO LAB
--- NOTE | 2016-11-22 01:45 | NUR ---
UNABLE TO LOCATED VANC DOSE ON UNIT, VANC TROUGH 19.3, FOXING CLOSER NOTIFIED OF NEED FOR DOSE.
--- NOTE | 2016-11-22 02:30 | NUR ---
FALSEWORK BUILDER HERE WITH VANC DOSE, DOSE GIVEN AT THIS TIME.
--- NOTE | 2016-11-22 03:45 | NUR ---
RADIOLOGY AT FOR AM CXR, PT REPOSITIONED ONTO RIGHT SIDE SUPPORTED WITH PILLOWS, SCDS REAPPLIED AFTER BREAK, VSS.
--- NOTE | 2016-11-22 05:15 | NUR ---
AM LAB DRAWN FROM CVL AND SENT TO LAB, PT SUCTIONED DOWN ETT WITH WHITE THICK RETURN, CLEAR SECRETIONS SUCTIONED FROM MOUTH.
[2016-11-22 05:32] LABS: BASOPHILS 0.4 % (0-2); HEMATOCRIT 24.1 % (42.0-54.0); HEMOGLOBIN 8.1 g/dL (13.5-17.5); IMMATURE GRANULOCYTES 1.1 % (0-5); LYMPHOCYTES 13.7 % (15-50); MCHC 33.6 g/dL (31.0-37.0); MCV 89.3 fL (80.0-100.0); MEAN PLATELET VOLUME 8.8 fL (7.4-10.4); MONOCYTES 11.9 % (2-11); NEUTROPHILS 70.9 % (40-80); RDW 15.9 % (11.5-14.5); WBC 9.2 10x3/uL (4.8-10.8)
[2016-11-22 05:34] LABS: PLATELET COUNT 337 10x3/uL (130-400)
--- NOTE | 2016-11-22 06:00 | NUR ---
AM MEDS GIVEN, NO VISITORS IN AT THIS TIME
[2016-11-22 06:01] LABS: CALC OSMOLALITY 265 mosm/kg (275-300); CALCIUM 7.5 mg/dL (8.5-10.1); CARBON DIOXIDE 25.9 mmol/L (21.0-32.0); CHLORIDE - SERUM 101 mmol/L (98-107); GLUCOSE 123 mg/dL (74-106); PHOSPHOROUS 2.8 mg/dL (2.5-4.9); POTASSIUM - SERUM 3.8 mmol/L (3.5-5.1); SODIUM 132 mmol/L (136-145); UREA NITROGEN 12 mg/dL (7-18); eGFR NON AFRICAN AMERICAN 79 mL/min (90-120)
--- NOTE | 2016-11-22 07:00 | NUR ---
PT AROUSES TO VOICE AND IS SEDATED AT THIS TIME PER ORDER. ETT NOTED AND SECURED, 24 @ LIP. ORAL CARE PERFORMED AND PT SUCTIONED, WHITE/CLEAR SPUTUM NOTED, GAG REFLEX WITH SUCTION AND FACIAL GRIMACING. NORMAL SINUS ON MONITOR. TUBE FEEDINGS INFUSING TO NGT, WILL INCREASE PER ORDER, NO RESIDUALS NOTED AT THIS TIME. WEAK PEDAL PULSES NOTED BILAT. HYPOACTIVE BOWEL SOUNDS X4. ILLEOSTOMY NOTED AND CDI, EMPTIED AND VOLUME ADDED TO OUTPUT.
--- NOTE | 2016-11-22 09:00 | NUR ---
DR VANEGAS ROUNDED ON PT. AMMONIA LEVEL RECHECKED AND HE STATES TO CHANGE LACTULOSE TO ONCE A DAY. FLUIDS CHANGED TO NORMAL SALINE DUE TO LOW SODIUM. 1 UNIT OF PRBC ORDERED FOR DECREASING H&H. LAB CALLED AND THEY WILL GET BLOOD READY. ORAL CARE PERFORMED. NO FURTHER CHANGES
--- NOTE | 2016-11-22 09:52 | NUR ---
NUTRITION MONITORING & EVAL CHART REVIEWED, SPOKE WITH MD. PT REMAINS ON VENT. TOLERATING JEVITY M1.2 @ 20 CC/HR. RECOMMENDED CURRENT GOAL RATE 60 CC/HR WHILE PT ON VENT. RECOMMEND INCREASED GOAL RATE TO 65 CC/HR AFTER PT IS EXTUBATED. RD FOLLOWING
--- NOTE | 2016-11-22 11:00 | NUR ---
PT REPOSITIONED IN BED AND ORAL CARE PERFORMED. BLOOD INFUSING AND NO SIGNS OF TRANSFUSION REACTION NOTED. VITALS DOCUMENTED PER BLOOD FLOWSHEET. WILL MONITOR CLOSELY
--- NOTE | 2016-11-22 13:00 | NUR ---
UPDATE GIVEN TO FAMILY. ILLEOSTOMY BAG LEAKED. CLEANED AROUND STOMA AND BAG CHANGED. PT CLEANED AND COMPLETE LINEN CHANGE DONE. PT REPOSITIONED IN BED. ORAL CARE AND SUCTION PERFORMED. VITAL SIGNS STABLE
--- NOTE | 2016-11-22 14:59 | NUR ---
NO CHANGES FROM PREVIOUS NOTE. WILL CONTINUE TO MONITOR PT STATUS CLOSELY. VITAL SIGNS STABLE.
--- NOTE | 2016-11-22 17:00 | NUR ---
PT REPOSITIONED IN BED AND ORAL CARE PERFORMED. AROUSES TO VOICE AND OBEYING COMMANDS. VITAL SIGNS STABLE.
--- NOTE | 2016-11-22 19:20 | NUR ---
REPORT REC'D AND CARE ASSUMED, REC'D PT ON VENT VIA 8.0 ETT TAPED @ 24CM LIPLINE SEE FLOWSHEET FOR VENT SETTINGS, PT AWAKENS TO VERBAL STIMULI, FOLLOWING COMMNANDS, RIGHT NARE NGT SECURED WITH JANETT, PLACEMENT VERIFIED VIA SM AIR BOLUS AUSCULTATED OVER EPIGASTRIM, JEVITY 1.2 INFUSING @ 40CC/HR, RESIDUAL 3CC, LTLSCL DRSG CDI WITH NS @ 50CC/HR AND DIPRIVAN @ 40MCG/KG/MIN, PROXIMAL PORT SALINE LOCKED, INSTRUCTED NOT TO USE PER PREVIOUS SHIFT, ABDOMEN DISTENDED AND FIRM, MIDLINE ABDOMINAL INCISION WITH NEO CDI, RIGHT LOWER QUADRANT ILEOSTOMY WITH BROWN LIQUID STOOL NOTED, SKIN AROUND OSTOMY EXCORIATED AND SCABBED, RIGHT INNER THIGH WITH SCAB NOTED, MCCARTHY PATENT DRAINING CONCENTRATED URINE, BILAT SCD'S INTACT AND BILAT SOFT WRIST RESTRAINTS IN PLACE, SR UP X 2, VISIBLE TO NURSES STATION.
[2016-11-22 20:08] LABS: ACID FAST SMEAR Negative (()); AFB SPECIMEN PROCESSING Concentration (())
--- NOTE | 2016-11-22 20:40 | NUR ---
EVENING MEDS GIVEN, PT REPOSITIONED IN BED UP AND ONTO LEFT SIDE SUPPORTED WITH PILLOWS, VSS.
--- NOTE | 2016-11-22 21:10 | NUR ---
SON AND DAUGHTER @ BS, UPDATE GIVEN AND QUESTIONS ANSWERED.
--- NOTE | 2016-11-22 23:30 | NUR ---
REASSESSMENT COMPLETED, TF RESIDUAL 5CC, TF INCREASED TO 50CC AT THIS TIME AN VOLUME ADDED TO BAG, PT REPOSITIONED ONTO BACK, ARMS ELEVATED ON PILLOWS, HEELS BRIDGED.
[2016-11-23] VITALS (23 sets, daily range): BP systolic 125–150; BP diastolic 64–80
--- NOTE | 2016-11-23 02:00 | NUR ---
NO CHANGES IN STATUS AT THIS TIME
--- NOTE | 2016-11-23 03:40 | NUR ---
RADIOLOGY @ BS FOR AM CXR
--- NOTE | 2016-11-23 04:50 | NUR ---
AM LAB DRAWN FROM CVL AND LTLSCL DRSG CHANGED, SITE CLEANED WITH CHOLRAPREP, BIOPATCH AND TEGADERM APPLIED.
[2016-11-23 05:01] LABS: BASOPHILS 0.6 % (0-2); EOSINOPHILS 3.7 % (0-7); HEMATOCRIT 27.2 % (42.0-54.0); HEMOGLOBIN 9.2 g/dL (13.5-17.5); IMMATURE GRANULOCYTES 0.7 % (0-5); LYMPHOCYTES 14.6 % (15-50); MCH 30.3 pg (26.0-34.0); MCHC 33.8 g/dL (31.0-37.0); MCV 89.5 fL (80.0-100.0); MEAN PLATELET VOLUME 9.2 fL (7.4-10.4); MONOCYTES 12.2 % (2-11); NEUTROPHILS 68.2 % (40-80); PLATELET COUNT 299 10x3/uL (130-400); RBC 3.04 10x6/uL (4.20-6.10); RDW 15.7 % (11.5-14.5); WBC 6.9 10x3/uL (4.8-10.8)
[2016-11-23 05:16] LABS: CALC OSMOLALITY 273 mosm/kg (275-300); CALCIUM 7.7 mg/dL (8.5-10.1); CHLORIDE - SERUM 102 mmol/L (98-107); GLUCOSE 133 mg/dL (74-106); PHOSPHOROUS 2.9 mg/dL (2.5-4.9); POTASSIUM - SERUM 4.1 mmol/L (3.5-5.1); SODIUM 136 mmol/L (136-145); UREA NITROGEN 12 mg/dL (7-18); eGFR NON AFRICAN AMERICAN 79 mL/min (90-120)
--- NOTE | 2016-11-23 05:45 | NUR ---
ILEOSTOMY LEAKING, BATH AND LINEN CHANGE PROVIDED, PT REPOSITIONED UP AND ONTO RIGHT SIDE SUPPORTED WITH PILLOWS, VSS.
--- NOTE | 2016-11-23 06:00 | NUR ---
AM MEDS GIVEN, NO VISITORS IN AT THIS TIME.
--- NOTE | 2016-11-23 09:30 | NUR ---
AWAKES EASILY TO VERBAL STIMULI, OBEY COMMANDS, SQUEEZES HANDS ON REQUEST. NODES TO YES AND NO QUESTIONS. NAPPING WELL ON DIPRIVAN AT 40 MCG/KG/MIN. ETT SECURE TO VENT BILATERAL LUNG SOUNDS EQUAL SOME CONGESTION NOTED. SUCTION ORALLY AND PER ETT. LEFT NARES NG TUBE INFUSING WITH JEVITY 1.5 AT 50 ML HOUR. NO RESIDUAL NOTED. INCREASED TUBE FEEDING RATE TO 60 ML GOAL RATE. ILEOSTOMY BAG WITH GREEN LIQUID AND SOME SERRANO SEDIMENT. 525 ML EMPTY FROM BAG. MCCARTHY CATH PATENT AND DRAINING CLOUDY YELLOW URINE. SCD ON LOWER LEGS. WORKING PROPERLY. MULTIPLE SORES WITH SCALPS ON ABD NO DRAINAGE OR REDNESS NOTED. ABD INCISION LOWER ABD WITH NEO IN PLACE HEALING OF INCISION NOTED. LEFT SUBCLAVIAN TRIPLE LUMEN INFUSING WITH DIPRIVAN AND NS AT 50 ML HOUR. SITE WITHOUT REDNESS OR DRAINAGE. MONITOR SR. NO ECTOPICS NOTED. HEAD OF BED ELEVATED 30 DREGREES.
--- NOTE | 2016-11-23 10:08 | NUR ---
NUTRITION MONITORING & EVAL CHART REVIEWED, PT REMAINS ON VENT, SEDATED. TOLERATING JEVITY 1.2 @ CURRENT GOAL RATE 60 CC/HR. DIPRIVAN AT 23 CC/HR. RD FOLLOWING
--- NOTE | 2016-11-23 10:24 | NUR ---
PHERIAL IV'S STARTED IN LEFT ARM X 2, X 3 ATTEMPTS. PATIENT TOLERATED WELL. LEFT WRIST IV 20 GAUGE INFUSING WITH NS AT 50 ML HOUR, LEFT FOREARM INFUSING WITH DIPIRIVAN AT 45 MCG/KG/MIN. WITH 20 GAUGE. CENTRAL LINE TO BE PULLED AND TIP CULTURED
--- NOTE | 2016-11-23 12:14 | NUR ---
PLACE ON SIMV ON VENT. TOLERATING WELL SO FAR. FAMILY HERE QUESTIONS ANSWERED. OPENS EYES TO VERBAL STIMULI. BILATERAL LUNG SOUNDS EQUAL CATH TIP FROM CENTRAL LINE CUT AND IN STERILE CONTAINER TO LAB FOR CULTURE. TOLERATED WELL NO BLEEDING FROM SITE, DRESSING APPLIED TO LEFT SUBCLAVIAN . LARGE AMOUNT GREEN LIQUID FROM ILESTOMY.
--- NOTE | 2016-11-23 13:03 | NUR ---
SEDATION OFF. ALERT AND COOPERATIVE WRITING NOTES.
[2016-11-23 13:16] LABS: FUNGUS STAIN Final report (())
--- NOTE | 2016-11-23 14:21 | NUR ---
REPOSITIONED EMPTIED 950 OF GREEN LIQUID FROM ILEOSTOMY. ALERT NODES HEAD TO QUESTIONS. OBEYS COMMANDS. alert tolerating SIMV WELL ON VENT. SUCTIONED LARGE AMOUNT OF CLEAR THICK SECRETIONS FROM ETT
--- NOTE | 2016-11-23 14:39 | NUR ---
VANCOMYCIN TROUGH LEVEL GREATER THAN 25. VANCOMYCIN HELD
--- NOTE | 2016-11-23 18:24 | NUR ---
DIPRIVAN RESTARTED AT 30 MCG/KG/MIN CURRENTLY. IV'S X 2 WITHOUT REDNESS OR SWELLING. LARGE AMOUNT OUTPUT FROM ILEOSTOMY 3075 ML THIS SHIFT. MONITOR SR. AWAKES EASILY TO VERBAL STIMULI. OBEYS COMMANDS, NODES HEAD TO QUESTIONS. SCD ON LOWER LEGS. REPOSITIONED IN BED. FAMILY AT BEDSIDE. QUESTIONS ANSWERED.
[2016-11-24] VITALS (19 sets, daily range): BP systolic 136–168; BP diastolic 73–96
[2016-11-24 04:34] LABS: BASOPHILS 0.8 % (0-2); EOSINOPHILS 4.7 % (0-7); HEMATOCRIT 27.5 % (42.0-54.0); IMMATURE GRANULOCYTES 0.5 % (0-5); MCH 29.7 pg (26.0-34.0); MCHC 32.7 g/dL (31.0-37.0); MCV 90.8 fL (80.0-100.0); MEAN PLATELET VOLUME 9.7 fL (7.4-10.4); MONOCYTES 17.4 % (2-11); NEUTROPHILS 57.6 % (40-80); PLATELET COUNT 250 10x3/uL (130-400); RBC 3.03 10x6/uL (4.20-6.10); RDW 15.5 % (11.5-14.5); WBC 6.2 10x3/uL (4.8-10.8)
[2016-11-24 04:59] LABS: CALC OSMOLALITY 276 mosm/kg (275-300); CALCIUM 7.9 mg/dL (8.5-10.1); CARBON DIOXIDE 25.5 mmol/L (21.0-32.0); CHLORIDE - SERUM 103 mmol/L (98-107); GLUCOSE 134 mg/dL (74-106); MAGNESIUM - SERUM 2.1 mg/dL (1.8-2.4); PHOSPHOROUS 2.8 mg/dL (2.5-4.9); POTASSIUM - SERUM 4.3 mmol/L (3.5-5.1); SODIUM 137 mmol/L (136-145); UREA NITROGEN 15 mg/dL (7-18); VANCOMYCIN - RANDOM 14.1 ug/mL (10.0-20.0); eGFR NON AFRICAN AMERICAN 79 mL/min (90-120)
--- NOTE | 2016-11-24 15:35 | NUR ---
ABG'S DRAWN AND CALLED TO DR VANEGAS. PT EXTUBATED TO 4LNC. FAMILY AT BS.
--- NOTE | 2016-11-24 19:00 | NUR ---
REPORT REC'D, PATIENT CARE ASSUMED. ASSESSMENT COMPLETED. SEE FLOW SHEETS FOR ALL FINDINGS. PT A/O X4, DENEIS SOB OR DISCOMFORT AT THIS TIME. SR ON CM. LUNG SOUNDS CRACKLES TO ULB WITH DIMINISHED TO LLB, UNLABORED. O2SAT 97% VIA NC. ABD MIDLINE INCISIION WITH STAPLE INTACT,WITH SCANT DRAINAGE NOTED. ILEOSTOMY BAG INTACT, DRAINED 225CC GREEN DRAINGE. PPP. CALL LIGHT IN REACH. CONT TO MONITOR.
--- NOTE | 2016-11-24 21:00 | NUR ---
FAMILY AT BEDSIDE. UPDATED AND QUESTIONS ANSWERED.
--- NOTE | 2016-11-24 23:00 | NUR ---
REASSESSMENT COMPLETED PER FLOW SHEETS. NO ACUTE SIGNS OF DISTRESS NOTED AT THIS TIME. VSS. REPOSITIONED FOR COMFORT. PILLOWS IN USE FOR SUPPORT. CALL LIGHT IN REACH. CPOC.
[2016-11-25] VITALS (18 sets, daily range): BP systolic 122–195; BP diastolic 85–105
--- NOTE | 2016-11-25 01:00 | NUR ---
PT AWAKE, WATCHING TV, C/O UNABLE TO SLEEP. REPOSITIIONED FOR COMFORT. PILLOWS IN USE FOR SUPPORT. CALL LIGHT IN REACH. CPOC.
--- NOTE | 2016-11-25 03:00 | NUR ---
REASSESSMENT COMPLETED PER FLOW SHEETS. NO ACUTE CHANGES IN PT'S CONDITION NOTED. NO SIGNS OF DISTRESS. PT C/O DISCOMFORT, REFUSED PAIN MEDS AT THIS TIME. REPOSITIIONED FOR COMFORT. CPOC.
--- NOTE | 2016-11-25 05:00 | NUR ---
PT AWAKE WATCHING TV, UNABLE TO SLEEP. REPOSITIONED FOR COMFORT. CALL LIGHT IN REACH. CPOC
[2016-11-25 05:22] LABS: BASOPHILS 0.5 % (0-2); EOSINOPHILS 4.6 % (0-7); HEMOGLOBIN 9.7 g/dL (13.5-17.5); IMMATURE GRANULOCYTES 0.4 % (0-5); LYMPHOCYTES 20.2 % (15-50); MCH 29.4 pg (26.0-34.0); MCHC 32.3 g/dL (31.0-37.0); MCV 90.9 fL (80.0-100.0); MEAN PLATELET VOLUME 9.5 fL (7.4-10.4); MONOCYTES 11.7 % (2-11); NEUTROPHILS 62.6 % (40-80); PLATELET COUNT 257 10x3/uL (130-400); RDW 15.2 % (11.5-14.5)
[2016-11-25 05:26] LABS: WBC 7.8 10x3/uL (4.8-10.8)
--- NOTE | 2016-11-25 07:30 | NUR ---
ASSESSMENT COMPLETE. NO DISTRESS NOTED.
--- NOTE | 2016-11-25 09:38 | NUR ---
NUTRITION MONITORING & EVAL CHART REVIEWED. PT OFF VENT, DIET ADVANCED TO FULL LIQUID. NURSING REPORTS POOR PO INTAKE BREAKFAST. MOSTLY JUICE. RD FOLLOWING
--- NOTE | 2016-11-25 10:00 | NUR ---
SHARI CALDERA. ABD NEO PARTIALLY REMOVED. UNABLE TO REMOVE TOP STAPLE. 3 FOLLOWING NEO REMOVED AND INCISION OPENED PARTIALLY. STERI STRIPS APPLIED. DR. RESENDIZ NOTIFIED BY Dontrell MANNING RN.
--- NOTE | 2016-11-25 13:00 | NUR ---
DR. HALL HERE. TOP STAPLE REMOVED FROM ABD INCISION BY HER.
--- NOTE | 2016-11-25 13:30 | NUR ---
TO X RAY VIA BED FOR CT SCAN.
--- NOTE | 2016-11-25 13:55 | NUR ---
RETURN FROM CT.
--- NOTE | 2016-11-25 16:00 | NUR ---
1610: BP 186/97(120) HYDRALIZINE 10MG GIVEN IV. 1630: BP 187/105(116).
--- NOTE | 2016-11-25 19:00 | NUR ---
1900: Transfer orders noted. No bed available per HSV.
--- NOTE | 2016-11-25 20:00 | NUR ---
2000: Pt with incision to midline distal ABD. Proximal portion of ABD incision open and covered with steri-strips. Proximal area partially open with white/pink tissue. Distal portion of incision with neftali intact. Pt with multiple small irregular shaped areas that are scabbed bilaterally on distal ABD. RLQ of ABD with Ileostomy dressing intact draining liquid green drainage.
--- NOTE | 2016-11-25 21:00 | NUR ---
2100: Family here and update provided at this time. Pt without c/o at this time.
[2016-11-26] VITALS: BP 160/104
--- NOTE | 2016-11-26 | NUR ---
0000: Pt BP elevated. (See VS) Hydralazine 10mg IVP admin at this time as per orders. Pt HR remains regular 70's at this time. Pt cont breathing 022LNC with RR16x with SPO2 97%.
--- NOTE | 2016-11-26 01:00 | NUR ---
0100: Pt urinated 350cc of dark UOP into urinal.
[2016-11-26 05:00] VITALS: BP 166/90
[2016-11-26 05:04] LABS: BASOPHILS 0.7 % (0-2); EOSINOPHILS 6.6 % (0-7); HEMATOCRIT 32.2 % (42.0-54.0); HEMOGLOBIN 10.5 g/dL (13.5-17.5); IMMATURE GRANULOCYTES 0.2 % (0-5); LYMPHOCYTES 16.4 % (15-50); MCH 29.2 pg (26.0-34.0); MCHC 32.6 g/dL (31.0-37.0); MCV 89.4 fL (80.0-100.0); MEAN PLATELET VOLUME 9.5 fL (7.4-10.4); NEUTROPHILS 65.1 % (40-80); PLATELET COUNT 237 10x3/uL (130-400); WBC 8.3 10x3/uL (4.8-10.8)
[2016-11-26 05:19] LABS: ALBUMIN 2.8 g/dL (3.4-5.0); ALKALINE PHOSPHATASE 91 U/L (46-116); ALT (SGPT) 21 U/L (10-68); CALC OSMOLALITY 276 mosm/kg (275-300); CALCIUM 8.4 mg/dL (8.5-10.1); CARBON DIOXIDE 29.2 mmol/L (21.0-32.0); CHLORIDE - SERUM 103 mmol/L (98-107); CREATININE - SERUM 0.9 mg/dL (0.6-1.3); GLUCOSE 116 mg/dL (74-106); MAGNESIUM - SERUM 1.7 mg/dL (1.8-2.4); POTASSIUM - SERUM 3.9 mmol/L (3.5-5.1); PROTEIN - SERUM 6.6 g/dL (6.4-8.2); SODIUM 138 mmol/L (136-145); UREA NITROGEN 12 mg/dL (7-18); VANCOMYCIN - TROUGH 10.6 ug/mL (10.0-20.0); eGFR NON AFRICAN AMERICAN 89 mL/min (90-120)
[2016-11-26 07:00] VITALS: BP 158/92
--- NOTE | 2016-11-26 07:15 | NUR ---
ASSESSMENT COMPLETE. NO ACUTE DISTRESS NOTED.
[2016-11-26 09:00] VITALS: BP 171/95
--- NOTE | 2016-11-26 10:30 | NUR ---
UP TO CHAIR. TOLERATED WELL.
--- NOTE | 2016-11-26 11:45 | NUR ---
BACK TO BED. NO DISTRESS. REFUSED LUNCH,
[2016-11-26 14:00] VITALS: BP 141/87
--- NOTE | 2016-11-26 14:00 | NUR ---
RESTING QUIETLY. NO DISTRESS NOTED.
--- NOTE | 2016-11-26 21:30 | NUR ---
2130: Pt 02 removed at this time and pt breathing RA with [id number] with SPO2 96%. Pt assisted up OOB. Pt with unsteady gait, but only required moderate assitance with transfer to .
--- NOTE | 2016-11-26 22:00 | NUR ---
2200: Pt transferred to [facility] 2229 via WC with family present.
[2016-11-26 23:30] VITALS: BP 152/79
--- NOTE | 2016-11-27 01:06 | NUR ---
RN NOTE: EMPTIED ILEOSTOMY BAG WITH 225 ML OF BROWN LIQUID. EMPTIED 300 ML OF YELLOW URINE FROM URINAL. WARM BLANKET APPLIED FOR COMFORT. O2 IN USE AT 2L VIA NC. WILL CONTINUE TO MONITOR FOR NEEDS. CALL LIGHT WITHIN REACH.
--- NOTE | 2016-11-27 03:08 | NUR ---
PATIENT LAYING IN BED NOT SLEEPING, STATING HE HASN'T SLEPT IN 3 DAYS. BED RAILS UP x3, BED ALARM ON. NO NEEDS NOTED AT THIS TIME.
[2016-11-27 04:00] VITALS: BP 162/79
[2016-11-27 05:19] LABS: BASOPHILS 0.9 % (0-2); EOSINOPHILS 7.9 % (0-7); HEMATOCRIT 30.3 % (42.0-54.0); HEMOGLOBIN 9.9 g/dL (13.5-17.5); IMMATURE GRANULOCYTES 0.3 % (0-5); LYMPHOCYTES 20.6 % (15-50); MCHC 32.7 g/dL (31.0-37.0); MCV 88.9 fL (80.0-100.0); MEAN PLATELET VOLUME 9.6 fL (7.4-10.4); MONOCYTES 13.6 % (2-11); NEUTROPHILS 56.7 % (40-80); PLATELET COUNT 252 10x3/uL (130-400); RBC 3.41 10x6/uL (4.20-6.10); RDW 14.9 % (11.5-14.5); WBC 7.5 10x3/uL (4.8-10.8)
[2016-11-27 05:47] LABS: ALKALINE PHOSPHATASE 98 U/L (46-116); ALT (SGPT) 19 U/L (10-68); CALC OSMOLALITY 281 mosm/kg (275-300); CALCIUM 8.5 mg/dL (8.5-10.1); CARBON DIOXIDE 28.1 mmol/L (21.0-32.0); CHLORIDE - SERUM 105 mmol/L (98-107); CREATININE - SERUM 0.9 mg/dL (0.6-1.3); GLUCOSE 115 mg/dL (74-106); MAGNESIUM - SERUM 1.7 mg/dL (1.8-2.4); POTASSIUM - SERUM 3.7 mmol/L (3.5-5.1); PROTEIN - SERUM 6.7 g/dL (6.4-8.2); SODIUM 141 mmol/L (136-145); UREA NITROGEN 13 mg/dL (7-18); VANCOMYCIN - TROUGH 10.6 ug/mL (10.0-20.0); eGFR NON AFRICAN AMERICAN 89 mL/min (90-120)
--- NOTE | 2016-11-27 06:24 | NUR ---
20G PIV TO LEFT HAND D/C WITH CATH INTACT DUE TO LEAKAGE
--- NOTE | 2016-11-27 07:40 | NUR ---
PT AOX4 RESP EVEN AND NONLABORED PT DENIES NEEDS AT THIS TIME SRX2 BED AT LOWEST SETTING CALL LIGHT WITHIN REACH WILL CONTINUE TO MONITOR IV TO LEFT FOREARM PATENT AND INTACT AT THIS TIME
[2016-11-27 10:07] VITALS: BP 188/97
[2016-11-27 12:27] VITALS: BP 155/80
[2016-11-27 20:00] VITALS: BP 175/91
--- NOTE | 2016-11-27 20:33 | NUR ---
PATIENT LAYING IN BED WITH IV INTACT. O2 ON. NO COMPLAINTS. FAMILY AT BEDSIDE. CALL LIGHT WITHIN REACH.
--- NOTE | 2016-11-27 22:32 | NUR ---
PATIENT WAS VIEWED ATTEMPTING TO TAKE OFF HIS SCD'S AND GETTING OOB. SCD'S WERE REMOVED, LINEN WAS COMPLETELY CHANGED, NOTED CONFUSION WITH HALLUCINATIONS. SON REPORTED THAT HE WAS HAVING HALLUCINATIONS DURING THE DAY. WILL CONTINUE TO MONITOR. HIGHLY RECOMEND NOT CONTINUING AMBIEN.
[2016-11-28] VITALS: BP 187/97
--- NOTE | 2016-11-28 00:13 | NUR ---
COLOSTOMY CHANGED AFTER THE TOP HALF WAS PEELED AWAY FROM THE SKIN. MINIMAL CONFUSION NOTED WITH PATIENT NOW. SAT HIM UP IN THE CHAIR AND HE STARTED TO FALL ASLEEP. WILL CONTINUE TO MONITOR.
--- NOTE | 2016-11-28 02:12 | NUR ---
PATIENT ATTEMPTED TO GET OOB, NC WAS REMOVED FROM HIS FACE. SPO2 READ 78%, O2 REPLACED AND SPO2 INCREASED TO 94%+. PATIENT SAT IN CHAIR AND IMMEDIATELY FELL ASLEEP. CARMELA ALARM WAS PLACED IN CHAIR.
[2016-11-28 04:00] VITALS: BP 183/96
[2016-11-28 05:46] LABS: BASOPHILS 0.6 % (0-2); EOSINOPHILS 5.1 % (0-7); HEMOGLOBIN 9.9 g/dL (13.5-17.5); IMMATURE GRANULOCYTES 0.2 % (0-5); LYMPHOCYTES 20.8 % (15-50); MCH 29.4 pg (26.0-34.0); MEAN PLATELET VOLUME 9.8 fL (7.4-10.4); MONOCYTES 14.1 % (2-11); NEUTROPHILS 59.2 % (40-80); PLATELET COUNT 283 10x3/uL (130-400); RBC 3.37 10x6/uL (4.20-6.10); RDW 15.2 % (11.5-14.5); WBC 8.3 10x3/uL (4.8-10.8)
[2016-11-28 06:11] LABS: ALBUMIN 3.2 g/dL (3.4-5.0); ALKALINE PHOSPHATASE 117 U/L (46-116); ALT (SGPT) 22 U/L (10-68); CALC OSMOLALITY 278 mosm/kg (275-300); CALCIUM 8.7 mg/dL (8.5-10.1); CARBON DIOXIDE 29.6 mmol/L (21.0-32.0); CHLORIDE - SERUM 102 mmol/L (98-107); CREATININE - SERUM 0.9 mg/dL (0.6-1.3); GLUCOSE 125 mg/dL (74-106); MAGNESIUM - SERUM 1.6 mg/dL (1.8-2.4); POTASSIUM - SERUM 3.6 mmol/L (3.5-5.1); PROTEIN - SERUM 7.2 g/dL (6.4-8.2); SODIUM 139 mmol/L (136-145); UREA NITROGEN 13 mg/dL (7-18); VANCOMYCIN - TROUGH 10.4 ug/mL (10.0-20.0); eGFR NON AFRICAN AMERICAN 89 mL/min (90-120)
--- NOTE | 2016-11-28 07:40 | NUR ---
SLEEPING IN CHAIR AT THIS TIME WITH RESPIRATIONS EVEN AND NON LABORED. CARMELA MAT ALARM ON AND IN USE. IV TO LEFT FOREARM PATENT WITH NO S/S OF INFILTRATION PRESENT. CALL LIGHT IN REACH AND DOOR OPEN. WILL CONTINUE WITH PLAN OF CARE.
--- NOTE | 2016-11-28 08:06 | NUR ---
SCHEDULED MEDICATIONS ADMINISTERED AT THIS TIME. PT BACK TO BED WITH BED ALARM ON. ASSESSMENT PERFORMED PER FLOWSHEET. ILEOSTOMY REMAINS INTACT. CALL LIGHT IN REACH, WILL CONTINUE WITH PLAN OF CARE.
[2016-11-28 08:33] VITALS: BP 184/98
--- NOTE | 2016-11-28 12:00 | NUR ---
22G IV SITED TO PT'S RIGHT HAND X1 ATTEMPT. DRESSING DATED AND INITIALED. SON REMAINS AT BEDSIDE. CALL LIGHT IN REACH, WILL CONTINUE WITH PLAN OF CARE.
[2016-11-28 12:11] LABS: FUNGUS MYCOLOGY CULTURE Preliminary report (())
[2016-11-28 12:17] VITALS: BP 157/79
--- NOTE | 2016-11-28 12:49 | NUR ---
NUTRITION MONITORING & EVAL CHART REVIEWED, PT VISIT. REG DIET BUT CONTINUES POOR INTAKE. 25% AT BREAKFAST. WILL CONTINUE TO PROVIDE DIET, ENCOURAGE PO INTAKE. RD FOLLOWING
--- NOTE | 2016-11-28 16:07 | NUR ---
SCHEDULED ANTIBIOTIC ADMINISTERED AT THIS TIME. FAMILY AT BEDSIDE. PT DENIES NEEDS AT THIS TIME. CALL LIGHT IN REACH, WILL CONTINUE WITH PLAN OF CARE.
[2016-11-28 16:42] VITALS: BP 152/76
[2016-11-28 20:00] VITALS: BP 172/85
[2016-11-29] VITALS: BP 177/96
--- NOTE | 2016-11-29 00:15 | NUR ---
ASSISTED PATIENT USING THE URINAL, HE VOIDED 200ML OF MYRNA COLORED URINE. PATIENT DENIES FURTHER NEEDS AT THIS TIME. PATIENT IS RECIEVING OXYEN VIA NASAL CANNULA. IN BED. BED IN LOWEST POSITION. CALL LIGHT IN REACH. BED RAILS UP X'S 2. NO SIGNS OF DISTRESS NOTED.
[2016-11-29 04:00] VITALS: BP 173/90
[2016-11-29 06:01] LABS: BASOPHILS 1.2 % (0-2); EOSINOPHILS 5.7 % (0-7); HEMATOCRIT 28.9 % (42.0-54.0); HEMOGLOBIN 9.6 g/dL (13.5-17.5); IMMATURE GRANULOCYTES 0.3 % (0-5); LYMPHOCYTES 22.7 % (15-50); MCH 29.5 pg (26.0-34.0); MCHC 33.2 g/dL (31.0-37.0); MCV 88.9 fL (80.0-100.0); MEAN PLATELET VOLUME 9.5 fL (7.4-10.4); MONOCYTES 13.4 % (2-11); NEUTROPHILS 56.7 % (40-80); PLATELET COUNT 274 10x3/uL (130-400); RBC 3.25 10x6/uL (4.20-6.10); RDW 15.2 % (11.5-14.5); WBC 7.7 10x3/uL (4.8-10.8)
[2016-11-29 06:34] LABS: ALBUMIN 3.3 g/dL (3.4-5.0); ALKALINE PHOSPHATASE 106 U/L (46-116); ALT (SGPT) 18 U/L (10-68); CALC OSMOLALITY 281 mosm/kg (275-300); CALCIUM 8.8 mg/dL (8.5-10.1); CARBON DIOXIDE 30.6 mmol/L (21.0-32.0); CHLORIDE - SERUM 102 mmol/L (98-107); CREATININE - SERUM 0.9 mg/dL (0.6-1.3); GLUCOSE 111 mg/dL (74-106); MAGNESIUM - SERUM 1.5 mg/dL (1.8-2.4); PHOSPHOROUS 3.4 mg/dL (2.5-4.9); POTASSIUM - SERUM 3.7 mmol/L (3.5-5.1); PRO BNP 5730 pg/mL (0-125); PROTEIN - SERUM 6.9 g/dL (6.4-8.2); SODIUM 141 mmol/L (136-145); UREA NITROGEN 12 mg/dL (7-18); VANCOMYCIN - TROUGH 9.6 ug/mL (10.0-20.0); eGFR NON AFRICAN AMERICAN 89 mL/min (90-120)
--- NOTE | 2016-11-29 07:48 | NUR ---
A&O, DENEIS NEEDS, BED LOWEST POSITION, BED IN LOW FOWLERS, CALL LIGHT IN REACH, WILL CONITNUE TO MONITOR
--- NOTE | 2016-11-29 08:00 | NUR ---
LYING IN BED,WITHOUT DISTRESS.CALL LIGHT IN REACH.DOOR OPEN
[2016-11-29 08:54] VITALS: BP 174/94
[2016-11-29 11:55] VITALS: BP 174/86
[2016-11-29 15:48] VITALS: BP 178/93
--- NOTE | 2016-11-29 19:34 | NUR ---
REPORT RECEIVED FROM PIN WORKER NURSE. CALL LIGHT IN REACH.
[2016-11-29 20:00] VITALS: BP 175/89
--- NOTE | 2016-11-29 21:39 | NUR ---
ASSESSMENT COMPLETED. PM MEDS ADMINISTERED. BED ALARM TURNED ON. SCDs OFF AT THIS TIME. CALL LIGHT IN REACH. WILL CONTINUE WITH PLAN OF CARE.
--- NOTE | 2016-11-29 23:35 | NUR ---
COLOSTOMY BAG EMPTIED AT THIS TIME PER CO-WORKER. NO NEEDS VOICED AT THIS TIME. CALL LIGHT IN REACH.
[2016-11-30] VITALS: BP 166/85
--- NOTE | 2016-11-30 00:56 | NUR ---
WILL SKIP MIDNIGHT DOSE OF COUGH MED D/T PATIENT BEING ASLEEP. WILL GIVE EARLY AM DOSE.
--- NOTE | 2016-11-30 02:34 | NUR ---
25 CC STOOL EMPTIIED FROM COLOSTOMY BAG THEN BURPED. DENIES OTHER NEEDS. CALL LIGHT IN REACH. BED ALARM IS ON.
[2016-11-30 04:00] VITALS: BP 155/76
--- NOTE | 2016-11-30 04:00 | NUR ---
PT IN BED WITH NO DISTRESS. RESPIRATIONS EVEN AND UNLABORED. SIDE RAILS X 2. BED LOW. CALL LIGHT IN REACH.
[2016-11-30 05:34] LABS: BASOPHILS 1.1 % (0-2); EOSINOPHILS 4.6 % (0-7); HEMATOCRIT 28.9 % (42.0-54.0); HEMOGLOBIN 9.6 g/dL (13.5-17.5); IMMATURE GRANULOCYTES 0.3 % (0-5); LYMPHOCYTES 21.2 % (15-50); MCH 29.3 pg (26.0-34.0); MCHC 33.2 g/dL (31.0-37.0); MCV 88.1 fL (80.0-100.0); MEAN PLATELET VOLUME 9.8 fL (7.4-10.4); MONOCYTES 13.1 % (2-11); NEUTROPHILS 59.7 % (40-80); PLATELET COUNT 316 10x3/uL (130-400); RBC 3.28 10x6/uL (4.20-6.10)
--- NOTE | 2016-11-30 06:18 | NUR ---
NO CHANGES IN INTIAL ASSESSMENT. CALL LIGHT IN REACH. SCDs OFF. BED ALARM ON. WILL CONTINUE WITH PLAN OF CARE.
[2016-11-30 06:22] LABS: ALBUMIN 3.6 g/dL (3.4-5.0); ALKALINE PHOSPHATASE 118 U/L (46-116); ALT (SGPT) 20 U/L (10-68); BILIRUBIN - TOTAL 0.53 mg/dL (0.2-1.3); CALC OSMOLALITY 273 mosm/kg (275-300); CALCIUM 8.7 mg/dL (8.5-10.1); CARBON DIOXIDE 27.9 mmol/L (21.0-32.0); CHLORIDE - SERUM 98 mmol/L (98-107); CREATININE - SERUM 0.9 mg/dL (0.6-1.3); GLUCOSE 114 mg/dL (74-106); MAGNESIUM - SERUM 1.6 mg/dL (1.8-2.4); PHOSPHOROUS 3.6 mg/dL (2.5-4.9); POTASSIUM - SERUM 3.8 mmol/L (3.5-5.1); PROTEIN - SERUM 7.1 g/dL (6.4-8.2); SODIUM 136 mmol/L (136-145); UREA NITROGEN 14 mg/dL (7-18); eGFR NON AFRICAN AMERICAN 89 mL/min (90-120)
--- NOTE | 2016-11-30 07:37 | NUR ---
RESTING, DENIES NEEDS, BED LOWEST POSTION, CALL LIGHT IN REACH, WILL CONTINUE TO MONITOR
--- NOTE | 2016-11-30 08:00 | NUR ---
LYING IN BED,WITHOUT NEEDS.CALL LIGHT IN REACH ,DOOR OPEN.
[2016-11-30 08:53] VITALS: BP 174/98
--- NOTE | 2016-11-30 14:57 | NUR ---
NUTRITION MONITORING & EVAL CHART REVIEWED, PT VISIT. TOLERATING REG DIET. ~25% INTAKE RECENT MEALS, PT STATES HE IS TRYING TO EAT MORE. BOOST AT BEDSIDE. RD FOLLOWING
[2016-11-30 16:35] VITALS: BP 152/79
[2016-11-30 20:00] VITALS: BP 167/84
[2016-12-01] VITALS: BP 181/103
--- NOTE | 2016-12-01 03:52 | NUR ---
PT RESTING QUIETLY IN SUPINE POSITION WITH EYES CLOSED. IV IN RIGHT HAND PATENT WITH NS INFUSING AT KVO. SCD'S IN USE ON BLE. WILL CONTINUE TO MONITOR FOR NEEDS. CALL LIGHT WITHIN REACH.
[2016-12-01 04:00] VITALS: BP 154/82
[2016-12-01 05:43] LABS: BASOPHILS 0.6 % (0-2); EOSINOPHILS 3.1 % (0-7); HEMATOCRIT 29.6 % (42.0-54.0); HEMOGLOBIN 9.8 g/dL (13.5-17.5); IMMATURE GRANULOCYTES 0.3 % (0-5); LYMPHOCYTES 19.7 % (15-50); MCH 29.1 pg (26.0-34.0); MCHC 33.1 g/dL (31.0-37.0); MCV 87.8 fL (80.0-100.0); MEAN PLATELET VOLUME 9.9 fL (7.4-10.4); MONOCYTES 13.4 % (2-11); NEUTROPHILS 62.9 % (40-80); PLATELET COUNT 347 10x3/uL (130-400); RBC 3.37 10x6/uL (4.20-6.10); RDW 15.1 % (11.5-14.5); WBC 9.3 10x3/uL (4.8-10.8)
[2016-12-01 06:10] LABS: CALC OSMOLALITY 276 mosm/kg (275-300); CALCIUM 9.1 mg/dL (8.5-10.1); CARBON DIOXIDE 32.5 mmol/L (21.0-32.0); CHLORIDE - SERUM 97 mmol/L (98-107); CREATININE - SERUM 0.9 mg/dL (0.6-1.3); GLUCOSE 137 mg/dL (74-106); MAGNESIUM - SERUM 1.4 mg/dL (1.8-2.4); PHOSPHOROUS 3.1 mg/dL (2.5-4.9); POTASSIUM - SERUM 3.4 mmol/L (3.5-5.1); SODIUM 137 mmol/L (136-145); UREA NITROGEN 16 mg/dL (7-18); eGFR NON AFRICAN AMERICAN 89 mL/min (90-120)
[2016-12-01 07:16] LABS: ERYTHROCYTE SEDIMENTATION RATE 51 mm/hr (0-20)
--- NOTE | 2016-12-01 07:45 | NUR ---
PT ASSESSMENT COMPLETE AWAKE AND ALERT CONFUSED TO TIME AND PLACE PT STATES THIS IS A SENIOR CARE HOUSE TO DRY OUT AINT IT? EXPRESSED TO PT THAT HE IS IN FACT IN THE HOSPITAL PT STILL UNACCEPTING OF EXPLAINATION. BED ALARM ON IN IN WORKING ORDER PT IS ATTEMPTING TO CLIMB OOB STATES " I NEED TO WALK TO ER TO SEE MY FRIEND BEFORE SHE DIES THERE AND I NEED CLOTHES AND UNDERWEAR FROM MY HOUSE." UNSUCESSFUL ORIENTATION OF PT.
[2016-12-01 08:55] VITALS: BP 159/80
[2016-12-01 11:43] LABS: T4 THYROXINE 9.7 ug/dL (4.7-13.3); THYROID STIMULATING HORMONE 3.75 uIU/mL (0.36-3.74)
[2016-12-01 12:23] VITALS: BP 153/97
--- NOTE | 2016-12-01 12:46 | NUR ---
Rehab Note- Continue to follow the patient at this time. The patient continues to desat into the 80s when ambulating on 5L/NC oxygen with increased respiratory rate. Do not feel the patient could currently participate in the required 3hrs of therapy per day. Will continue to follow at this time. Thank you for this referral! Lorie Albarran RN Clinical Liaison, [facility] Rehab
--- NOTE | 2016-12-01 14:58 | NUR ---
RESTING QUIETLY IN BED. DENIES NEEDS. REPORTS PAIN WELL MANAGED.
[2016-12-01 16:49] VITALS: BP 120/85
--- NOTE | 2016-12-01 18:56 | NUR ---
PT RESTING IN BED NO DISTRESS NOTED ILLEOSTOMY IN TACT PATENT TO DARK GREEN COLORED LIQUID. FAMILY HAS BEEN HERE IN AND OUT TODAY. NO DISTRESS NOTED TO PT TODAY HAS TOLERATED WELL ALL TREATMENT AND THERAPY.
[2016-12-01 20:00] VITALS: BP 148/91
--- NOTE | 2016-12-01 22:33 | NUR ---
COMPLETE OSTOMY BAG CHANGED, OSTOMY IS PINK AND BEEFY. REDDENED SKIN NOTED CLOSE TO THE ABDOMINAL MIDLINE, STAPPLED INCISTION NOTED TO LRQ UNDER THE SEAL. +3 PITTING EDEMA NOTED TO FLANK AND HIP, R<L.
--- NOTE | 2016-12-01 23:00 | NUR ---
PATIENT'S FAMILY LEAVING, THEY WANTED TO MAKE SURE JOSIAH KEBEDE WAS AWARE. I TOLD THEM I WILL CHECK PATIENT'S BED ALARM TO MAKE SURE IT IS ON AND LET DELIO KNOW. WENT TO PATIENT'S ROOM, HE IS RESTING QUIETLY WITH EYES CLOSED. NASAL CANNULA ON. NO SIGNS OF DISTRESS NOTED. BED IN LOWEST POSITION, CALL LIGHT IN REACH. BED RIALS UP X'S 2. BED ALARM ON. DOOR OPEN. TOLD JOSIAH KEBEDE THAT FAMILY LEFT. HE SAID "OKAY."
[2016-12-02] VITALS (29 sets, daily range): BP systolic 73–152; BP diastolic 45–94
--- NOTE | 2016-12-02 03:01 | NUR ---
COLOSTOMY BAG FULLY CHAGANGED AFTER THE BAG WAS DISCONECTED FROM THE WAFER. PATIENT CURRENTLY SITTING IN THE CHAIR SLEEPING SOME WITH THE CARMELA ALARM ON.
--- NOTE | 2016-12-02 04:58 | NUR ---
CALL TO SON EMERGENCY CONTACT ON PT BOARD IN ROOM. PHONE NUMBER [phone],NO ANSWER. MESSAGE LEFT TO CALL UNIT
--- NOTE | 2016-12-02 04:59 | NUR ---
CALL TO DAUGHTER MARLON PHONE NUMBER [phone].NO ANSWER, MESSAGE LEFT FOR THEM TO COME TO HOSPITAL. RE... STATUS CHANGE IN HER DAD
--- NOTE | 2016-12-02 05:12 | NUR ---
REC'D TO [facility] [address] POST [address]ASTAVA, DR. TUBBS AT BS. TO [facility] VENT VIA [facility]. ICU MONITORS ESTAB, ALARMS ON. SEE NEW ORDERS.
[2016-12-02 05:17] LABS: BASOPHILS 0.2 % (0-2); EOSINOPHILS 1.9 % (0-7); HEMOGLOBIN 9.3 g/dL (13.5-17.5); IMMATURE GRANULOCYTES 0.6 % (0-5); LYMPHOCYTES 37.1 % (15-50); MCH 28.7 pg (26.0-34.0); MCHC 32.1 g/dL (31.0-37.0); MCV 89.5 fL (80.0-100.0); MEAN PLATELET VOLUME 9.7 fL (7.4-10.4); MONOCYTES 11.5 % (2-11); NEUTROPHILS 48.7 % (40-80); PLATELET COUNT 301 10x3/uL (130-400); RBC 3.24 10x6/uL (4.20-6.10); RDW 15.3 % (11.5-14.5)
[2016-12-02 05:18] LABS: WBC 13.6 10x3/uL (4.8-10.8)
--- NOTE | 2016-12-02 05:29 | NUR ---
DR RESENDIZ PAGED TO INFORM HIM ABOUT CODE AND TRANSFER TO ICU
[2016-12-02 05:30] LABS: ALBUMIN 3.8 g/dL (3.4-5.0); BILIRUBIN - TOTAL 0.3 mg/dL (0.2-1.3); CALCIUM 8.9 mg/dL (8.5-10.1); CARBON DIOXIDE 32.8 mmol/L (21.0-32.0); CREATININE - SERUM 1.3 mg/dL (0.6-1.3); MAGNESIUM - SERUM 1.9 mg/dL (1.8-2.4); PHOSPHOROUS 4.9 mg/dL (2.5-4.9); POTASSIUM - SERUM 3.8 mmol/L (3.5-5.1); PROTEIN - SERUM 7.7 g/dL (6.4-8.2)
--- NOTE | 2016-12-02 05:33 | NUR ---
SON WAS CALLED AND MESSAGE WAS LEFT FOR HIM TO CALL THE MED/SURG FLOOR
[2016-12-02 05:35] LABS: APTT 35.8 SECONDS (22.8-39.4); INR 1.14 (0.85-1.17); PROTIME 14.4 SECONDS (11.6-15.0)
--- NOTE | 2016-12-02 05:35 | NUR ---
NEW 20GA PIV SITED TO R FA X 4 STICKS.
--- NOTE | 2016-12-02 05:37 | NUR ---
DR LOVE RETURNED PAGE AND WAS INFORMED OF THE CODE AND TRANSFER TO ICU
--- NOTE | 2016-12-02 05:40 | NUR ---
PT RECIEVED. DR TUBBS AT BEDSIDE. NEW ORDERS RECIEVED. WILL CONTINUE TO MONITOR. NURSE AT BEDSIDE.
--- NOTE | 2016-12-02 05:45 | NUR ---
OGT PLACED - PLACEMENT VERIFIED X 2 RNS. TO LIWS WITH LIGHT GREEN RETURN NOTED.
--- NOTE | 2016-12-02 05:50 | NUR ---
DR. LOVE NOTIFIED OF CODE AND PT STATUS REPORT GIVEN. NEW ORDERS REC'D.
--- NOTE | 2016-12-02 06:25 | NUR ---
TITRATING LEVOPHED GTT PER ORDERS. PT WITH OCCASIONAL COUGH NOTED, NO SEDATION, WITHDRAWL TO PAIN.
--- NOTE | 2016-12-02 06:36 | NUR ---
DR. ZIEGLER NOTIFIED. NO NEW ORDERS AT THIS TIME.
--- NOTE | 2016-12-02 10:29 | NUR ---
Nutrition follow-up: Pt now intubated, sedated post code Levophed started labs reviewed OGT->LIWS Will need nutrition support started if unable to extubate. Recommend Pulmocare start @ 25 ml/hr with graudal increase to goal rate of 60 ml/hr. RDN following.
--- NOTE | 2016-12-02 19:30 | NUR ---
BILATERAL VENOUS DOPPLER ULTRASOUND TEST IN PROGRESS. ON VENT. ALL WORKING PROPERLY. RT IJ TRIALYSIS SALINE LOCKED, AWAITING CONFIRMATION OF PLACEMENT.
--- NOTE | 2016-12-02 20:00 | NUR ---
SHIFT ASSESSMENT COMPLETED. SEE ASSESSMENT FLOWSHEET.
[2016-12-03] VITALS (29 sets, daily range): BP systolic 71–148; BP diastolic 40–129
--- NOTE | 2016-12-03 | NUR ---
REASSESSMENT COMPLETED. SEE ASSESSMENT FLOWSHEET. WILL OPEN EYES TO STIMULATION AND WITHDRAW TO PAIN. GRIMACES WHEN ORAL CARE COMPLETED.
--- NOTE | 2016-12-03 02:20 | NUR ---
BEGAN TO START A VFIB RHYTHM ON THE MONITOR. KALEE TORRES RN NOTICED WHILE SITTING AT THE MONITORS. CRASH CART OBTAINED AND CODE BLUE CALLED. SEE CODE BLUE SHEET.
--- NOTE | 2016-12-03 02:30 | NUR ---
SON CALLED BY ROLANDO VALLE TO INFORM OF CHANGES. WILL BE UP HERE SITA.
--- NOTE | 2016-12-03 02:38 | NUR ---
DR. ZIEGLER MADE AWARE OF CODE. ORDERED TO CALL CARDIOLOGY.
--- NOTE | 2016-12-03 02:45 | NUR ---
DR. BOO -ER DOC VERBALLY CONFIRMS APPROPRIATE PLACEMENT OF RT IJ TRIALYSIS AND OK TO USE.
[2016-12-03 02:51] LABS: BASOPHILS 0.3 % (0-2); EOSINOPHILS 0.9 % (0-7); HEMOGLOBIN 9.1 g/dL (13.5-17.5); IMMATURE GRANULOCYTES 0.5 % (0-5); LYMPHOCYTES 41.9 % (15-50); MCH 28.6 pg (26.0-34.0); MCHC 32.5 g/dL (31.0-37.0); MCV 88.1 fL (80.0-100.0); MEAN PLATELET VOLUME 10.2 fL (7.4-10.4); MONOCYTES 7.3 % (2-11); NEUTROPHILS 49.1 % (40-80); PLATELET COUNT 321 10x3/uL (130-400); RBC 3.18 10x6/uL (4.20-6.10); RDW 15.9 % (11.5-14.5)
[2016-12-03 02:53] LABS: WBC 18.6 10x3/uL (4.8-10.8)
[2016-12-03 03:00] LABS: APTT 43.2 SECONDS (22.8-39.4); INR 1.18 (0.85-1.17); PROTIME 14.9 SECONDS (11.6-15.0)
[2016-12-03 03:15] LABS: ALBUMIN 3.8 g/dL (3.4-5.0); ALKALINE PHOSPHATASE 120 U/L (46-116); ALT (SGPT) 17 U/L (10-68); BILIRUBIN - TOTAL 0.64 mg/dL (0.2-1.3); CALC OSMOLALITY 285 mosm/kg (275-300); CALCIUM 10.6 mg/dL (8.5-10.1); CARBON DIOXIDE 32.7 mmol/L (21.0-32.0); CHLORIDE - SERUM 97 mmol/L (98-107); CKMB 0.1 U/L (0.0-3.6); CREATINE KINASE 53 UL (21-232); GLUCOSE 194 mg/dL (74-106); PHOSPHOROUS 3.8 mg/dL (2.5-4.9); PROTEIN - SERUM 7.6 g/dL (6.4-8.2); SODIUM 138 mmol/L (136-145); TROPONIN-I 0.021 ng/mL (0.000-0.060); UREA NITROGEN 27 mg/dL (7-18)
[2016-12-03 03:16] LABS: CREATININE - SERUM 2.3 mg/dL (0.6-1.3); MAGNESIUM - SERUM 4.3 mg/dL (1.8-2.4); POTASSIUM - SERUM 2.7 mmol/L (3.5-5.1); eGFR NON AFRICAN AMERICAN 30 mL/min (90-120)
--- NOTE | 2016-12-03 03:25 | NUR ---
DR. LOVE ANSWERING SERVICE WILL NOT SUPERVISOR BRAIDING. CALLED DR. LOVE'S CELL PHONE MADE AWARE OF CODE. DR. LOVE SPOKE WITH SON ON THE TELEPHONE. DNR ORDERS MADE. NO CODE AT ALL. DOES NOT WANT ANY VASOPRESSORS. OK TO CONTINUE CURRENT TREATMENT AND ELECTROLYTE REPLACEMENT. AFIB/NSR ON THE MONITOR.
--- NOTE | 2016-12-03 03:40 | NUR ---
DR. HARMON ANSWERING SERVICE CALLED TO PAGE PER DR. ZIEGLER'S AND DR. LOVE'S REQUEST. WILL AWAIT CALL RETURN.
--- NOTE | 2016-12-03 04:00 | NUR ---
REASSESSMENT COMPLETE SINCE POST-CODE. PUPILE BRISK AND REACT TO LIGHT AT 2MM. SOME DECORTICATE TYPE POSTERING NOTED WITH UE'S BILATERALLY. SON AND DAUGHTER AT BEDSIDE.
--- NOTE | 2016-12-03 05:30 | NUR ---
IV ABX HUNG. DECORTICATE POSTERING MORE PRONOUNCED AND MORE OFTEN.
--- NOTE | 2016-12-03 06:15 | NUR ---
SON AT BEDSIDE DISCUSSING WANTING TO POSSIBLY MADE FROM DNR TO COMFORT MEASURES ONLY NOW THAT POSTERING IS MORE OFTEN. WILL WAIT TO SPEAK TO A DOCTOR WHEN THEY ROUND BUT DOES WANT TO BE CALLED IF THEY SHOW UP AND HE AND SISTER MAY BE IN [place].
--- NOTE | 2016-12-03 07:00 | NUR ---
REC'D CARE OF PT. ON VENT, NO SEDATION.
--- NOTE | 2016-12-03 08:00 | NUR ---
FAMILY ALLOWED BACK
[2016-12-03 10:04] LABS: MAGNESIUM - SERUM 2.3 mg/dL (1.8-2.4); POTASSIUM - SERUM 3.8 mmol/L (3.5-5.1)
--- NOTE | 2016-12-03 10:19 | NUR ---
RR 18. BREATHING OVER THE VENT SET AT 15.
--- NOTE | 2016-12-03 12:34 | NUR ---
COMFORT MEASURES ONLY PER DR. ZIEGLER AND THE FAMILY.
--- NOTE | 2016-12-03 18:00 | NUR ---
FAMILY AT BEDSIDE. UPDATED.
--- NOTE | 2016-12-03 19:20 | NUR ---
SHIFT ASSESSMENT COMPLETED. SEE ASSESSMENT FLOWSHEET. FAMILY AT BEDSIDE X3. COOL WASHED CLOTH APPLIED TO FOREHEAD FOR ELEVATED TEMP. D5NS INFUSING @ 75ML/HR TO RT FOREARM PIV 20G. RT LOWER QUAD COLOSTOMY WITH BROWN, LIQUID STOOL NOTED. APPROX. 150ML NOTED. WITHDRAWS FROM PAIN. FAMILY REQUEST TO HAVE MORPHINE WITH SUCTIONING ETC IF NEEDED. SCD'S TO LE'S BILATERALLY. HEELS ELEVATED ONTO PILLOWS. WILL MONITOR.
--- NOTE | 2016-12-03 21:00 | NUR ---
FAMILY AT BEDSIDE. REPORTS THEY ARE GOING HOME FOR THE EVENING BUT TO CALL WITH ANY CHANGES. WILL MONITOR.
--- NOTE | 2016-12-03 22:55 | NUR ---
REASSESSMENT COMPLETED. SEE ASSESSMENT FLOWSHEET. NO NEW ACUTE CHANGES NOTED. EMPTIED ILEOSTOMY BAG-200ML TOTAL. WILL MONITOR.
[2016-12-04] VITALS (24 sets, daily range): BP systolic 60–144; BP diastolic 52–82
--- NOTE | 2016-12-04 00:35 | NUR ---
ORAL CARE COMPLETED. TURNED AND REPOSITIONED FOR COMFORT. EYE DROPS PLACED INTO EYES FOR LUBRICATION. NEW COOL WASH CLOTH APPLIED TO FOREHEAD. WILL MONITOR.
--- NOTE | 2016-12-04 02:30 | NUR ---
HAD A FEW MINUTES OF UNCONTROLLED AFIB IN THE 110'S THEN BACK DOWN TO NSR BASELINE IN THE 80'S. WILL MONITOR.
--- NOTE | 2016-12-04 03:30 | NUR ---
REASSESSMENT COMPLETED. SEE ASSESSMENT FLOWSHEET. I & O'S COMPLETED.
--- NOTE | 2016-12-04 04:45 | NUR ---
BED BATH AND LINEN CHANGE COMPLETED.
--- NOTE | 2016-12-04 05:30 | NUR ---
BEGINNING TO CHANGE HEART RHYTHMS BETWEEN NSR WITH PAC'S; AFIB; AND SVT. SON, PRITESH CALLED AND MADE AWARE OF CHANGES.
--- NOTE | 2016-12-04 07:46 | NUR ---
NO ACUTE DISTRESS NOTED. PT LYING IN BED. DOES NOT FOLLOW COMMANDS. SOME FACIAL GRIMACING NOTED WITH REPOSITIONING AND SUCTIONING. HEART RATE 151 SVT. PTS FAMILY HAVE BEEN MADE AWARE OF PTS RHYTHM STATUS OF CHANGING FROM SINUS WITH PAC TO UNCONTROLLED AFIB AND SVT. OXYGEN SATURATION AT 97% WITH VENT AT 40% FIO2. WILL CONTINUE PLAN OF CARE.
--- NOTE | 2016-12-04 09:57 | NUR ---
HEART RATE CONTINUING TO CHANGE FROM SINUS WITH PACS IN THE 90S TO 155 SVT. PTS FAMILY IS AWARE OF RHYTM CHANGING. PT IS DNR AND FAMILY WISH FOR STAFF TO KEEP PT COMFORTABLE. PT TURNED Q2H. WILL CONTINUE PLAN OF CARE.
--- NOTE | 2016-12-04 12:00 | NUR ---
FAMILY AT BEDSIDE AT THIS TIME. NO ACUTE DISTRESS NOTED. NO CHANGE. WILL CONTINUE PLAN OF CARE.
--- NOTE | 2016-12-04 14:54 | NUR ---
FAMILY AT BEDSIDE. UPDATE GIVEN. PT TURNED Q2H. NO ACUTE DISTRESS NOTED. NOT FOLLOWING COMMANDS. WILL CONTINUE PLAN OF CARE.
--- NOTE | 2016-12-04 17:31 | NUR ---
NO ACUTE DISTRESS NOTED. NO CHANGE. ORAL CARE AND SUCTIONING PROVIDED. PT TURNED Q2H. WILL CONTINUE PLAN OF CARE.
--- NOTE | 2016-12-04 19:15 | NUR ---
SHIFT ASSESSMENT COMPLETE. SON AND DAUGHTER AT BEDSIDE. PERRLA, 3 MM, BRISK REACTION TO LIGHT. ETT 7.5 RESTING ON THE LEFT SIDE OF THE MOUTH. OGT IN PLACE DRAINING GREEN FLUID. MUCOUS MEMBRANES PINK AND MOIST. S1S2 AUDIBLE. HR 156 SVT/A-FIB UNCONTROLLED. WET BREATH SOUNDS HEARD THROUGHOUT ALL LOBES. UPON PLACING HAND ON CHEST LUNGS FEEL COURSE. ABD DISTENDED AND FIRM. ILESTOMY ON RLQ. SCAB NOTED ON THE BOTTOM OF HIS ABD FROM PREVIOUS SURGERY. MCCARTHY CATH IN [place] DRAINING CONCENTRATED MYRNA URINE. RADIAL AND PEDAL PULSES ARE WEAK AT THIS TIME. SCD'S ON. PT'S SON REQUESTED THAT HE RECIEVED HIS PRN MORPHINE DUE TO HIM BEING UNCOMFORTABLE. ADMIN MORPHINE PER REQUEST. FAMILY WILL STAY AT BEDSIDE TONIGHT AND STRESS THE IMPORTANCE OF COMFORT CARE. INSISTED THAT WE WILL DO EVERYTHING WE CAN TO KEEP HIS FATHER COMFORTABLE. NO FURTHER REQESTS AT THIS TIME. WILL CONT TO MONITOR.
--- NOTE | 2016-12-04 21:00 | NUR ---
INFUSING IV FLUIDS WERE NEAR END AND PT'S SON REQUESTED FOR THEM TO BE TAKEN DOWN AT THIS TIME. HE STATEST THAT HE FEARS THAT IT WILL CAUSE FLUID OVERLOAD AND THAT HE IS ALREADY HAVING A HARD ENOUGH TIME BREATHING. UNHOOKED FLUIDS PER REQUEST. NO FURTHER REQUESTS FROM PT'S FAMILY. WILL CONT WITH COMFORT CARE.
--- NOTE | 2016-12-04 23:30 | NUR ---
PT'S ASSISTED WITH TURNING HIS DAD AND MAKING HIM COMFORTABLE. REASSESSMENT COMPLETE AT THIS TIME. NO CHANGES AT THIS TIME. FAMILY AT BEDSIDE PLAYING SOOTHING MUSIC. REFILLED FAMILY MEMBERS REFRESHMENTS AND DELIVERED THEM BLANKETS FOR THE NIGHT. SUCTIONED PT, TOLERATED WELL. NO FURTHER REQUESTS AT THIS TIME. WILL CONT TO MONITOR.
[2016-12-05] VITALS (13 sets, daily range): BP systolic 60–120; BP diastolic 40–76
--- NOTE | 2016-12-05 01:15 | NUR ---
PT'S SON AND DAUGHTER ARE AT THE BEDSIDE. SON REQUESTED TO ADMINISTER ANOTHER DOSE OF PRN MORPHINE. PT IS COUGHING AT THIS TIME AND IS STARTING TO LOOK UNCOMFORTABLE. ADMINISTERED PRN MORPHINE. REPOSITIONED FOR COMFORT. PT LOOKS PEACEFULL AT THIS TIME. NO FURTHER REQUESTS.
--- NOTE | 2016-12-05 03:15 | NUR ---
DYLLAN NOTIFIED. DIESEL CRANE OPERATOR: KIMO GARCIA. SHE STATED THAT DUE TO THE HX OF THE CANCER TO KINDLY CALL BACK WHEN CARDIAC OCCURS. REASSESSMENT COMPLETE AT THIS TIME. PT DOES NOT OPEN EYES TO STIMULI AND HAS NO RESPONSE. PUPILS ARE SLUGGISH. SON STATES THAT HE WOULD LIKE PRN PAIN MEDS ADMINISTERED. ADMINISTERED PER REQUEST. PT FAMILY DENIES ANY REQUESTS AT THIS TIME. HE IS LYING ON HIS BACK WITH HIS HEAD FACING THE L SIDE CORNER. UNABLE TO FOLLOW COMMANDS. HR RANGES FROM 57-150'S AT THIS POINT. WILL CONT TO MONITOR CLOSELY.
--- NOTE | 2016-12-05 05:15 | NUR ---
DAUGHTER AND SON AT BEDSIDE. NO CHANGES AT THIS TIME. WILL CONT WITH COMFORT CARE.
--- NOTE | 2016-12-05 07:00 | NUR ---
PT ON VENT WITH NO SEDATION REQUIRED AT THIS TIME. PT BITES TUBE WITH SUCTION BUT HAS NO OTHER PURPOSEFUL RESPONSE AT THIS TIME. PUPILS SLUGGISH BILAT. ORAL CARE PERFORMED, ETT, ORAL, AND SUBGLOTTIC SUCTION COMPLETE, MODERATE AMOUNTS OF SECRETIONS NOTED. HR REMAINS HIGH AT THIS TIME WITH RATE IN 150S. COMPLETE SHIFT ASSESSMENT DOCUMENTED PER FLOWSHEET. PHYSICIANS NOTES STATE THAT PT IS NOW COMFORT MEASURES.
--- NOTE | 2016-12-05 09:00 | NUR ---
FAMILY ALLOWED TO STAY AT BEDSIDE PER REQUEST DUE TO POOR PROGNOSIS AND COMFORT CARE. PT REPOSITIONED IN BED FOR COMFORT. WILL CONTINUE TO MONITOR CLOSELY
--- NOTE | 2016-12-05 10:09 | NUR ---
NUTRITION MONITORING & EVAL CHART REVIEWED. PT REMAINS ON VENT. NOTE COMFORT CARE ONLY. CURRENTLY NPO. RD FOLLOWING
--- NOTE | 2016-12-05 10:55 | NUR ---
SPOKE WITH SON AND DAUGHTER IN FAMILY ROOM WITH DR VANEGAS AND JHOAN-FIELD ARTILLERY CREWMEMBER PRESENT. DISCUSSED PT STATUS TO VERIFY LEVEL OF COMFORT CARE TO PROCEED WITH. SON AND DAUGHTER STATE THAT THEY NEED TO DISCUSS TOGETHER BEFORE MAKING ANY DECISIONS. WILL CONTINUE TO MONITOR PT. NO ACUTE CHANGES AT THIS TIME.
--- NOTE | 2016-12-05 13:00 | NUR ---
PT FAMILY STATES THAT THEY HAVE DECIDED TO TERMINALLY EXTUBATE. DISCUSSED WITH DR VANEGAS. HE PUT ORDERS IN FOR EXTUBATION. WILL EXTUBATE PER RT WHEN AVAILABLE
--- NOTE | 2016-12-05 13:52 | EC ---
PATIENT:EMELINA MENDEZ DATE OF SERVICE: 11/03/16 SEX: M MEDICAL RECORD: [id number] DATE OF : 46 LOCATION:[place] [id number] AGE OF PATIENT: 66 ADMISSION DATE: 11/03/16 REFERRING PHYSICIAN: INTERPRETING PHYSICIAN: MARIAH VALDES MD ECHOCARDIOGRAM REPORT ECHO CHARGES 5 ECHO LIMITED 1 DOPPLER ECHO COLOR FLOW 2 DOPPLER ECHO PULSE CLINICAL DIAGNOSIS: S/P CODE ECHOCARDIOGRAPHIC MEASUREMENTS (adult normal given) AC root (d.<3.7cm) 0 cm LV Septum d (<1.2 cm> 0 cm Valve Excursion 0 cm LV Septum (systole) 0 cm Left Atria (s.<4.0cm> 0 cm LVPW d(<1.2cm) 0 cm RV (d.<2.3cm) 0 cm LVPW (sytole) 0 cm LV diastole(<5.6CM) 0 cm MV E-F(>70mm/sec) 0 cm LV systole 0 cm LVOT Diameter 0 cm MV exc.(>10mm) 0 cm Est.ejection fraction (50-75%) 0 % Pericardial Effusion N DOPPLER: LVIT 0 cm/sec A 0 cm/sec E 0 cm/sec LA 0 cm/sec RVSP 0 mmHg LVOT 0 cm/sec AOP1/2T 0 m/s Asc. Ao 0 cm/sec RVOT 0 cm/sec RA 0 cm/sec PA 0 cm/sec AV Gradient Peak 0 mmHg AV Mean 0 mmHg AV Area 0 cm MV Gradient Peak 0 mmHg MV Mean 0 mmHg MV Area 0 cm COMMENTS: LIMITED STUDY (2-D,COLOR,DOPPLER) COMPLETE ECHO DONE ON 11/18/16 Needle Loom Operator Helper: Remberto BARAJASOE Nursery Attendant: 3 Dr. Barone TAPE# PACS DATE OF SERVICE: 12/02/2016 Adequate 2D echo, color flow and spectral Doppler, and M-mode. Grossly LVH appears present. LV internal dimension is normal. Wall motion is normal. EF is greater than 55%. Aortic valve appears tricuspid with adequate excursion. The left atrium grossly appears normal with good excursion mitral valve. Right-sided chambers are normal. Only trivial TR. RV systolic pressures are estimated at 34 mmHg. TRANSINT:[id number] Voice Confirmation ID: [id number] DOCUMENT ID: [id number] ECHOCARDIOGRAM REPORT [id number] EMELINA MENDEZ GREGORY A MD at 1352 CC: [id number] DICTATION DATE: 12/02/16 1123 RN WOMEN SERVICES: 12/02/16 1609 ADM IN [facility] [address] [place] [address]
--- NOTE | 2016-12-05 14:15 | NUR ---
PT TERMINALLY EXTUBATED PER ORDER WITH RT AND RN AT BEDSIDE FOLLOWING PREMEDICATION ORDERED. ORAL SUCTION PERFORMED AND PT PLACED ON 2L NC. WILL MONITOR CLOSELY POST EXTUBATION
--- NOTE | 2016-12-05 15:59 | NUR ---
ASYSTOLE NOTED ON MONITOR. NO APICAL PULSE AUDIBLE. NO PULSES PALPABLE. RESPIRATIONS 0. EKG STRIP PRINTED AND IN CHART. DR GARSIA NOTIFIED AND WAITING FOR TO PRONOUNCE AT THIS TIME.
--- NOTE | 2016-12-05 16:25 | NUR ---
PT PRONOUNCED PER DR VANEGAS AT BEDSIDE. FAMILY AT BEDSIDE AND INFORMATION OBTAINED FOR RECORD OF . [facility] CALLED 1642 AND THEY DENIED PT DUE TO EXTENSIVE MEDICAL HISTORY. NOTIFIED YULIYA DUGAN ROOFING FOREMAN OF RESTRAINTS IN LAST SEVEN DAYS AND DOCUMENTED ON RECORD OF . WILL COMPLETE POST MORTUM CARE AND CALL HOME
--- NOTE | 2016-12-05 17:40 | NUR ---
HOME NOTIFIED OF AND REQUESTED THAT FAMILY BE CALLED WHEN PT ARRIVES AT HOME. POST MORTUM CARE COMPLETE AND BED BATH GIVEN. WAITING FOR TRANSPORTATION TO HOME AT THIS TIME.
--- NOTE | 2016-12-06 11:54 | NUR ---
Per CMS protocol, restraint report logged into data base.
--- NOTE | 2016-12-06 13:00 | OP ---
PATIENT NAME: EMELINA MENDEZ MEDICAL RECORD: [id number] :46 LOCATION:[facility] [id number] ADMISSION DATE:11/03/16 SURGEON: PATRICK LOVE MD DATE OF OPERATION: 12/02/2016 PREOPERATIVE DIAGNOSES: 1. Postoperative cardiac arrest. 2. Acute renal failure. POSTOPERATIVE DIAGNOSES: 1. Postoperative cardiac arrest. 2. Acute renal failure. PROCEDURE: Insertion of right internal jugular Trialysis catheter. SURGEON: Patrick Lvoe MD ADVANCED MANUFACTURING TECHNICIAN: None. BLOOD LOSS: Minimal. ANESTHESIA: Local. COMPLICATIONS: None. The risks, possible complications and alternatives to procedure were explained to the patient's family. They elected to proceed. They were at the bedside. The entire procedure was performed with the presence of a nurse. OPERATIVE COURSE: The patient was positioned in the Trendelenburg position. The right neck was sterilely prepped and draped. A local anesthetic was used to infiltrate the skin and subcutaneous tissues at the base of the right neck. The right internal jugular vein was percutaneously accessed in an antegrade fashion. A guidewire passed easily. A small skin lisbet was accomplished. A vessel dilator was used to dilate the subcutaneous tract. A short Trialysis catheter was inserted to the hub. It was sutured in place times 3. All lumens aspirated dark, nonpulsatile blood and then flushed easily. A sterile dressing was applied. A stat portable chest x-ray is pending. TRANSINT:[id number] Voice Confirmation ID: [id number] DOCUMENT ID: [id number] PATRICK LOVE MD at 1300 CC: [id number] DICTATION DATE: 12/02/161852 ADJUSTER AND INSPECTOR: 12/03/16 0036 DIS IN 12/05/16 [facility] [address] [place] [address]
== END 2016-12-05 18:48 | DRG 329 ==
LOC: D.ICU 06:48 → D.CVICU 06:48 → D.MS 06:48 → D.M2 06:48 → D.SDCHOLD 06:48 → D.MS 19:35 → D.CVICU 11-07 01:54 → D.ICU 11-08 16:15 → D.M2 11-11 17:59 → D.ICU 11-20 13:10 → D.MS 11-26 21:27 → D.ICU 12-02 05:34
PROVIDERS: Emergency Medicine; Family Medicine; General Practice; Internal Medicine Pulmonary Disease; Student in an Organized Health Care Education/Training Program; Surgery; ADMIT Surgery
PROC: 0BH17EZ Insertion of Endotracheal Airway into Trachea, Via Natural or Artificial Opening (ICD-10-PCS; 2016-11-01)
PROC: 5A1945Z Respiratory Ventilation, 24-96 Consecutive Hours (ICD-10-PCS; 2016-11-01)
PROC: 0DBN0ZZ Excision of Sigmoid Colon, Open Approach (ICD-10-PCS; principal; 2016-11-03 13:00)
PROC: 0D1B0Z4 Bypass Ileum to Cutaneous, Open Approach (ICD-10-PCS; 2016-11-07)
PROC: 0D9670Z Drainage of Stomach with Drainage Device, Via Natural or Artificial Opening (ICD-10-PCS; 2016-11-07)
PROC: 05H633Z Insertion of Infusion Device into Left Subclavian Vein, Percutaneous Approach (ICD-10-PCS; 2016-11-08)
PROC: 3E1M38Z Irrigation of Peritoneal Cavity using Irrigating Substance, Percutaneous Approach (ICD-10-PCS; 2016-11-08 12:45)
PROC: 0W993ZZ Drainage of Right Pleural Cavity, Percutaneous Approach (ICD-10-PCS; 2016-11-20)
PROC: 0BH17EZ Insertion of Endotracheal Airway into Trachea, Via Natural or Artificial Opening (ICD-10-PCS; 2016-11-20)
PROC: 5A1955Z Respiratory Ventilation, Greater than 96 Consecutive Hours (ICD-10-PCS; 2016-11-20)
PROC: 0W993ZZ Drainage of Right Pleural Cavity, Percutaneous Approach (ICD-10-PCS; 2016-11-21)
DX: C18.7 Malignant neoplasm of sigmoid colon (principal); J18.9 Pneumonia, unspecified organism; K65.9 Peritonitis, unspecified; J96.02 Acute respiratory failure with hypercapnia; J96.01 Acute respiratory failure with hypoxia; K91.3 Postprocedural intestinal obstruction; K91.89 Other postprocedural complications and disorders of digestive system; N17.9 Acute kidney failure, unspecified; D62 Acute posthemorrhagic anemia; J98.11 Atelectasis; J45.901 Unspecified asthma with (acute) exacerbation; E87.1 Hypo-osmolality and hyponatremia; E87.2 Acidosis; J90 Pleural effusion, not elsewhere classified; I13.0 Hypertensive heart and chronic kidney disease with heart failure and stage 1 through stage 4 chronic kidney disease, or unspecified chronic kidney disease; I50.30 Unspecified diastolic (congestive) heart failure; G93.1 Anoxic brain damage, not elsewhere classified; I46.9 Cardiac arrest, cause unspecified; Z51.5 Encounter for palliative care; Z66 Do not resuscitate; E78.00 Pure hypercholesterolemia, unspecified; I48.91 Unspecified atrial fibrillation; K21.9 Gastro-esophageal reflux disease without esophagitis; R00.0 Tachycardia, unspecified; R73.9 Hyperglycemia, unspecified; E87.6 Hypokalemia; N18.9 Chronic kidney disease, unspecified; G47.00 Insomnia, unspecified; R41.0 Disorientation, unspecified; T42.6X5A Adverse effect of other antiepileptic and sedative-hypnotic drugs, initial encounter; E83.42 Hypomagnesemia; J44.9 Chronic obstructive pulmonary disease, unspecified